=== PATIENT | female | born 1965 | race Caucasian/White ===

== ENCOUNTER 2019-05-11 10:55 | Inpatient (IN) | payer OTHER ==
[~2019-05-11] VITALS: Ht 157.5 cm; Wt 59.0 kg
[2019-05-11] MEDS ORDERED: IV NORMAL SALINE 1000ML BAG 1,000 ML IV SCH (11:13)
[2019-05-11] MEDS ORDERED: fentaNYL PF VIAL 100 MCG/2 ML VIAL IV ONE ×2 (11:15→13:15)
[2019-05-11] MEDS ORDERED: ONDANSETRON PF 4 MG/2 ML VIAL. IV ONE (11:15)
--- NOTE | 2019-05-11 11:18 | PHYS DOC ---
Adult General Chief Complaint Chief Complaint: ABDOMINAL PAIN HPI HPI Patient is a 53 year old female who presents with the evening began having a constant throbbing pain at her umbilicus and by yesterday it has now moved to her right lower quadrant. Patient states she's had some nausea and vomiting. Patient rates her pain a 7 out of 10. Review of Systems Review of Systems Constitutional: Denies fever or chills [] Eyes: Denies change in visual acuity, redness, or eye pain [] HENT: Denies nasal congestion or sore throat [] Respiratory: Denies cough or shortness of breath [] Cardiovascular: No additional information not addressed in HPI [] GI: RLQ abdominal pain, nausea, vomiting, denies bloody stools or diarrhea [] : Denies dysuria or hematuria [] Musculoskeletal: Denies back pain or joint pain [] Integument: Denies rash or skin lesions [] Neurologic: Denies headache, focal weakness or sensory changes [] Endocrine: Denies polyuria or polydipsia [] All other systems were reviewed and found to be within normal limits, except as documented in this note. Current Medications Current Medications Current Medications Medications (Trade) Dose Ordered Sig/Charli Start Time Stop Time Status Last Admin Dose Admin Cefepime HCl (Maxipime) 1 gm 1X ONCE 05/11/19 12:45 05/11/19 12:48 DC 05/11/19 13:14 1 GM Fentanyl Citrate (Fentanyl 2ml Vial) 50 mcg 1X ONCE 05/11/19 13:15 05/11/19 13:16 05/11/19 13:14 50 MCG Info (CONTRAST GIVEN -- Rx MONITORING) 1 each PRN DAILY PRN 05/11/19 12:00 05/13/19 11:59 Iohexol (Omnipaque 300 Mg/ml) 60 ml 1X ONCE 05/11/19 12:00 05/11/19 12:01 DC 05/11/19 12:09 60 ML Ondansetron HCl (Zofran) 4 mg 1X ONCE 05/11/19 11:15 05/11/19 11:32 DC 05/11/19 11:52 4 MG Piperacillin Sod/ Tazobactam Sod 3.375 gm/Sodium Chloride 50 ml @ 100 mls/hr 1X ONCE 05/11/19 12:45 05/11/19 13:14 UNV Sodium Chloride 1,000 ml @ 1,000 mls/hr Q1H 05/11/19 11:13 05/11/19 12:12 DC 05/11/19 11:53 1,000 MLS/HR Allergies Allergies Allergies Coded Allergies Type Severity Reaction Last Updated Verified Penicillins Allergy Intermediate RASH 05/11/19 Yes Physical Exam Physical Exam Constitutional: Well developed, well nourished, no acute distress, non-toxic appearance. [] HENT: Normocephalic, atraumatic, bilateral external ears normal, oropharynx moist, no oral exudates, nose normal. [] Eyes: PERRLA, EOMI, conjunctiva normal, no discharge. [] Neck: Normal range of motion, no tenderness, supple, no stridor. [] Cardiovascular:Heart rate regular rhythm, no murmur [] Lungs & Thorax: Bilateral breath sounds clear to auscultation [] Abdomen: Bowel sounds normal, soft, RLQ tenderness, no masses, no pulsatile masses. [] Skin: Warm, dry, no erythema, no rash. [] Back: No tenderness, no CVA tenderness. [] Extremities: No tenderness, no cyanosis, no clubbing, ROM intact, no edema. [] Neurologic: Alert and oriented X 3, normal motor function, normal sensory function, no focal deficits noted. [] Psychologic: Affect normal, judgement normal, mood normal. [] Current Patient Data Vital Signs Vital Signs Date Time Temp Pulse Resp B/P (MAP) Pulse Ox O2 Delivery O2 Flow Rate FiO2 05/11/19 11:52 18 100 Room Air 05/11/19 11:29 98.2 90 148/84 (105) 98.2 Lab Values Laboratory Tests Test 05/11/19 11:12 05/11/19 11:27 Urine Collection Type Unknown Urine Color Yellow Urine Clarity Clear Urine pH 7.0 Urine Specific [place] 1.015 Urine Protein Negative mg/dL (NEG-TRACE) Urine Glucose (UA) Negative mg/dL (NEG) Urine Ketones (Stick) Negative mg/dL (NEG) Urine Blood Trace (NEG) Urine Nitrite Negative (NEG) Urine Bilirubin Negative (NEG) Urine Urobilinogen Dipstick 0.2 mg/dL (0.2 mg/dL) Urine Leukocyte Esterase Trace (NEG) Urine RBC 3-5 /HPF (0-2) Urine WBC 5-10 /HPF (0-4) Urine Squamous Epithelial Cells Mod /LPF Urine Bacteria Few /HPF (0-FEW) White Blood Count 13.4 x10^3/uL (4.0-11.0) H Red Blood Count 4.19 x10^6/uL (3.50-5.40) Hemoglobin 13.0 g/dL (12.0-15.5) Hematocrit 38.4 % (36.0-47.0) Mean Corpuscular Volume 92 fL (79-100) Mean Corpuscular Hemoglobin 31 pg (25-35) Mean Corpuscular Hemoglobin Concent 34 g/dL (31-37) Red Cell Distribution Width 13.1 % (11.5-14.5) Platelet Count 193 x10^3/uL (140-400) Neutrophils (%) (Auto) 89 % (31-73) H Lymphocytes (%) (Auto) 7 % (24-48) L Monocytes (%) (Auto) 4 % (0-9) Eosinophils (%) (Auto) 0 % (0-3) Basophils (%) (Auto) 1 % (0-3) Neutrophils # (Auto) 11.8 x10^3uL (1.8-7.7) H Lymphocytes # (Auto) 0.9 x10^3/uL (1.0-4.8) L Monocytes # (Auto) 0.6 x10^3/uL (0.0-1.1) Eosinophils # (Auto) 0.0 x10^3/uL (0.0-0.7) Basophils # (Auto) 0.1 x10^3/uL (0.0-0.2) Platelet Estimate Pending Sodium Level 132 mmol/L (136-145) L Potassium Level 3.6 mmol/L (3.5-5.1) Chloride Level 97 mmol/L (98-107) L Carbon Dioxide Level 28 mmol/L (21-32) Anion Gap 7 (6-14) Blood Urea Nitrogen 13 mg/dL (7-20) Creatinine 1.1 mg/dL (0.6-1.0) H Estimated GFR (Cockcroft-Gault) 52.2 BUN/Creatinine Ratio 12 (6-20) Glucose Level 127 mg/dL (70-99) H Calcium Level 9.8 mg/dL (8.5-10.1) Total Bilirubin 1.3 mg/dL (0.2-1.0) H Aspartate Amino Transferase (AST) 19 U/L (15-37) Alanine Aminotransferase (ALT) 22 U/L (14-59) Alkaline Phosphatase 57 U/L (46-116) Total Protein 8.5 g/dL (6.4-8.2) H Albumin 4.0 g/dL (3.4-5.0) Albumin/Globulin Ratio 0.9 (1.0-1.7) L Lipase 356 U/L (73-393) Laboratory Tests 05/11/19 11:27 Laboratory Tests 05/11/19 11:27 EKG EKG [] Radiology/Procedures Radiology/Procedures [] Impressions: [facility] [address] [place] [address] IMAGING REPORT Signed PATIENT: WILLIS BOWLING ACCOUNT: [id number] : 1965 LOCATION: ER AGE: 53 SEX: F EXAM STATUS: REG ER ORD. PHYSICIAN: ZARIA GALEANO APRN REASON: RLQ pain PROCEDURE: CT ABD PELV W/ IV CONTRST ONLY Exam performed: CT abdomen and pelvis with contrast HISTORY: Right lower quadrant abdominal pain. DATE OF SERVICE: 05/11/2019. COMPARISON: None available TECHNIQUE: Contiguous helical acquisitions are obtained from the abdomen and pelvis during intravenous administration of 60 cc of Omnipaque 300. Sagittal and coronal reformatted images are obtained and reviewed. FINDINGS: The appendix is enlarged containing multiple appendicoliths. Diffuse adjacent inflammatory changes are seen. Findings consistent with acute appendicitis. There is a heterogeneously enhancing partially necrotic mass measuring 6.9 cm x 7.78 x 10.79 cm in maximum AP, transverse and craniocaudal dimension occupying the mid to inferior pole of the right kidney extending to the pelvis however not obstructing it. No enlarged lymph nodes are seen in the right renal hilum or in the periaortic/pericaval region. Lung bases are clear. Visualized heart is normal. Liver, spleen, pancreas and gallbladder are normal. Both adrenal glands and the left kidney is normal. Is normal in caliber. Small and large bowel loops are nondilated and unremarkable. Urinary bladder is partially decompressed. Uterus is anteverted. No adnexal masses or pelvic free fluid is seen. IMPRESSION: 1. Enlarged appendix containing appendicolith with adjacent inflammatory changes. Findings consistent with acute appendicitis. 2. Large heterogeneously enhancing mass is seen arising from the mid to inferior pole of the right kidney. Unless proven otherwise, renal cell carcinoma is the primary suspected. MRI abdomen with renal protocol may be obtained to further evaluate. Results were given to Zaria, the nurse practitioner in the ER soon after completion of the study at 12:30 PM at the time of dictation PQRS Compliance Statement: One or more of the following individualized dose reduction techniques were utilized for this examination: 1. Automated exposure control 2. Adjustment of the mA and/or kV according to patient size 3. Use of iterative reconstruction technique Electronically signed by: Griselda Ng MD (05/11/2019 12:32 PM) [facility] [place] DICTATED and SIGNED BY: GRISELDA NG MD DATE: 05/11/19 1232 Course & Med Decision Making Course & Med Decision Making Patient is a 53 year old female who presents with the evening began having a constant throbbing pain at her umbilicus and by yesterday it has now moved to her right lower quadrant. Patient states she's had some nausea and vomiting. Patient rates her pain a 7 out of 10. Patient states it's worse with sitting and nothing makes it better. Patient has not taken any pain medication. Vital signs within normal limits. Afebrile. Skin pink warm and dry. Mucous membranes are moist. Abdomen is soft and tender with palpation to right lower quadrant. There is no rebound tenderness. Steady gait. No extremity swelling. Vital signs are within normal limits. Lungs are clear to auscultation all lobes. Heart rate regular without murmur. Patient denies diarrhea, blood in her vomit or stool, shortness of air, chest pain. WBC elevated. CT ABD Pelv shows 1. Enlarged appendix containing appendicolith with adjacent inflammatory changes. Findings consistent with acute appendicitis. 2. Large heterogeneously enhancing mass is seen arising from the mid to inferior pole of the right kidney. Unless proven otherwise, renal cell carcinoma is the primary suspected. MRI abdomen with renal protocol may be obtained to further evaluate. I have spoken to Dr Hanson about this patient for admission. I have started Cefepime. Patient allergic to PCN. 1315: I have spoken to Surgeon Dr Hu and informed him of CT findings. He accepts the patient. Dragon Disclaimer Dragon Disclaimer This electronic medical record was generated, in whole or in part, using a voice recognition dictation system. Departure Departure Impression: Primary Impression: Appendicitis Additional Impression: Kidney mass Disposition: 09 ADMITTED INPATIENT Admitting Physician: ROSA Condition: STABLE Problem Qualifiers Primary Impression: Appendicitis Appendicitis type: acute appendicitis Acute appendicitis type: unspecified acute appendicitis type Qualified Codes: K35.80 - Unspecified acute appendicitis ZARIA GALEANO [employer] May 11, 2019 11:18
[2019-05-11 11:37] LABS: BASO # 0.1 x10^3/uL (0.0-0.2); BASO % 1 % (0-3); EOS % 0 % (0-3); HEMATOCRIT 38.4 % (36.0-47.0); LYMPH # 0.9 x10^3/uL (1.0-4.8); LYMPH % 7 % (24-48); MEAN CORPUSCULAR HEMOGLOBIN 31 pg (25-35); MEAN CORPUSCULAR HGB CONC 34 g/dL (31-37); MEAN CORPUSCULAR VOLUME 92 fL (79-100); MONO # 0.6 x10^3/uL (0.0-1.1); MONO % 4 % (0-9); NEUT # 11.8 x10^3uL (1.8-7.7); NEUT % 89 % (31-73); PLATELET COUNT 193 x10^3/uL (140-400); RED BLOOD COUNT 4.19 x10^6/uL (3.50-5.40); RED CELL DISTRIBUTION WIDTH 13.1 % (11.5-14.5); WHITE BLOOD COUNT 13.4 x10^3/uL (4.0-11.0)
[2019-05-11 11:37] LABS: BILIRUBIN,URINE NEGATIVE (NEG); CLARITY,URINE CLEAR; COLOR,URINE YELLOW; NITRITE,URINE NEGATIVE (NEG); PROTEIN,URINE NEGATIVE (NEG-TRACE); UROBILINOGEN,URINE 0.2 mg/dL (0.2 mg/dL)
[2019-05-11 11:45] LABS: SQUAMOUS EPITHELIAL CELL,UR MOD /LPF
[2019-05-11 11:45] LABS: CALCIUM 9.8 mg/dL (8.5-10.1); CREATININE 1.1 mg/dL (0.6-1.0); GFR 52.2; POTASSIUM 3.6 mmol/L (3.5-5.1)
[2019-05-11 11:46] LABS: BACTERIA,URINE FEW /HPF (0-FEW)
[2019-05-11 11:51] LABS: ALBUMIN/GLOBULIN RATIO 0.9 (1.0-1.7); TOTAL BILIRUBIN 1.3 mg/dL (0.2-1.0); TOTAL PROTEIN 8.5 g/dL (6.4-8.2)
[2019-05-11] MEDS ORDERED: CONTRAST GIVEN. MC PRN (12:00)
[2019-05-11] MEDS ORDERED: IOHEXOL 300 MG/ML 100ML VIAL. IV ONE (12:00)
--- NOTE | 2019-05-11 12:35 | RAD ---
Exam performed: CT abdomen and pelvis with contrast HISTORY: Right lower quadrant abdominal pain. DATE OF SERVICE: 05/11/2019. COMPARISON: None available TECHNIQUE: Contiguous helical acquisitions are obtained from the abdomen and pelvis during intravenous administration of 60 cc of Omnipaque 300. Sagittal and coronal reformatted images are obtained and reviewed. FINDINGS: The appendix is enlarged containing multiple appendicoliths. Diffuse adjacent inflammatory changes are seen. Findings consistent with acute appendicitis. There is a heterogeneously enhancing partially necrotic mass measuring 6.9 cm x 7.78 x 10.79 cm in maximum AP, transverse and craniocaudal dimension occupying the mid to inferior pole of the right kidney extending to the pelvis however not obstructing it. No enlarged lymph nodes are seen in the right renal hilum or in the periaortic/pericaval region. Lung bases are clear. Visualized heart is normal. Liver, spleen, pancreas and gallbladder are normal. Both adrenal glands and the left kidney is normal. Is normal in caliber. Small and large bowel loops are nondilated and unremarkable. Urinary bladder is partially decompressed. Uterus is anteverted. No adnexal masses or pelvic free fluid is seen. IMPRESSION: 1. Enlarged appendix containing appendicolith with adjacent inflammatory changes. Findings consistent with acute appendicitis. 2. Large heterogeneously enhancing mass is seen arising from the mid to inferior pole of the right kidney. Unless proven otherwise, renal cell carcinoma is the primary suspected. MRI abdomen with renal protocol may be obtained to further evaluate. Results were given to Zaria, the nurse practitioner in the ER soon after completion of the study at 12:30 PM at the time of dictation PQRS Compliance Statement: One or more of the following individualized dose reduction techniques were utilized for this examination: 1. Automated exposure control 2. Adjustment of the mA and/or kV according to patient size 3. Use of iterative reconstruction technique Electronically signed by: Griselda Ng MD (05/11/2019 12:32 PM) [facility]
[2019-05-11] MEDS ORDERED: BUPIVAC MPF-EPI 0.5%-1:200000 30 ML VIAL. ONE (12:42)
[2019-05-11] MEDS ORDERED: PIPERACILLIN/TAZOBACTAM 3.375 GM in IV NORMAL SALINE 50ML 50 ML IV ONE (12:45)
[2019-05-11] MEDS ORDERED: CEFEPIME HCL IV Push 1 GM VIAL. IVP ONE (12:45)
[2019-05-11] MEDS ORDERED: fentaNYL PF VIAL 100 MCG/2 ML VIAL IV PRN ×4 (13:15→13:30)
[2019-05-11] MEDS ORDERED: ONDANSETRON PF 4 MG/2 ML VIAL. IV PRN ×4 (13:15→15:15)
[2019-05-11] MEDS: IV NORMAL SALINE 1000ML BAG 1,000 ML IV SCH ×5 (13:15→23:17)
[2019-05-11] MEDS ORDERED: ACETAMINOPHEN 500 MG TABLET PO PRN (13:15)
[2019-05-11] MEDS ORDERED: ACETAMINOPHEN/CODEINE 300/30MG TABLET. PO PRN (13:15)
[2019-05-11] MEDS ORDERED: IV RINGERS,LACTATED 1000ML 1,000 ML IV SCH (13:17)
--- NOTE | 2019-05-11 13:26 | PDOC1 ---
History and Physical Date of Admission Date of Admission DATE: 05/11/19 TIME: 13:22 Identification/Chief Complaint Chief Complaint Right lower quadrant pain Source Source: Caregiver, Chart review, Patient History of Present Illness History of Present Illness 53-year-old white female, only past medical is hypertension on meds, acute onset right lower quadrant pain 2 days ago, some nausea, maybe emesis, no fever, no diarrhea. On imaging, acute appendicitis with appendicolith. But also incidental finding of a right necrotic renal mass could be RCC or at least needs to rule that out. Measuring 10 cm greatest diameter. No gross hematuria, no family history of RCC. NEws to her, Nonsmoker, nondrinker, clean living No known allergies. at bedside. Agreeable to be worked up with MRI renal protocol once appendicitis has been taken care of. Past Medical History Cardiovascular: HTN Past Surgical History Past Surgical History: Other (ALISA brooks) Family History Family History: No Significant Social History Smoke: No ALCOHOL: none Drugs: None Current Problem List Problem List Problems Medical Problems: (1) Appendicitis Status: Acute (2) Kidney mass Status: Acute Current Medications Current Medications Current Medications Sodium Chloride 1,000 ml @ 1,000 mls/hr Q1H IV Last administered on 05/11/19at 11:53; Start 05/11/19 at 11:13; Stop 05/11/19 at 12:12; Status DC Fentanyl Citrate (Fentanyl 2ml Vial) 50 mcg 1X ONCE IV Last administered on 05/11/19at 11:52; Start 05/11/19 at 11:15; Stop 05/11/19 at 11:32; Status DC Ondansetron HCl (Zofran) 4 mg 1X ONCE IV Last administered on 05/11/19at 11:52; Start 05/11/19 at 11:15; Stop 05/11/19 at 11:32; Status DC Iohexol (Omnipaque 300 Mg/ml) 60 ml 1X ONCE IV Last administered on 05/11/19at 12:09; Start 05/11/19 at 12:00; Stop 05/11/19 at 12:01; Status DC Info (CONTRAST GIVEN -- Rx MONITORING) 1 each PRN DAILY PRN MC SEE COMMENTS; Start 05/11/19 at 12:00; Stop 05/13/19 at 11:59 Piperacillin Sod/ Tazobactam Sod 3.375 gm/Sodium Chloride 50 ml @ 100 mls/hr 1X ONCE IV ; Start 05/11/19 at 12:45; Stop 05/11/19 at 13:14; Status UNV Cefepime HCl (Maxipime) 1 gm 1X ONCE IVP Last administered on 05/11/19at 13:14; Start 05/11/19 at 12:45; Stop 05/11/19 at 12:48; Status DC Fentanyl Citrate (Fentanyl 2ml Vial) 50 mcg 1X ONCE IV Last administered on 05/11/19at 13:14; Start 05/11/19 at 13:15; Stop 05/11/19 at 13:16; Status DC Sodium Chloride 1,000 ml @ 100 mls/hr Q10H IV ; Start 05/11/19 at 13:15 Fentanyl Citrate (Fentanyl 2ml Vial) 50 mcg PRN Q2HR PRN IV SEVERE PAIN; Start 05/11/19 at 13:15 Ondansetron HCl (Zofran) 4 mg PRN Q6HRS PRN IV NAUSEA/VOMITING; Start 05/11/19 at 13:15 Acetaminophen (Tylenol) 500 mg PRN Q6HRS PRN PO MILD PAIN / TEMP; Start 05/11/19 at 13:15 Acetaminophen/ Codeine Phosphate (Tylenol #3) 1 tab PRN Q6HRS PRN PO MODERATE PAIN; Start 05/11/19 at 13:15 Allergies Allergies: Coded Allergies: Penicillins (Verified Allergy, Intermediate, RASH, 05/11/19) ROS Review of System As per history of present illness, the rest of ROS 14 point negative Physical Exam General: Alert, Oriented X3, Cooperative, No acute distress HEENT: Atraumatic, PERRLA, EOMI Lungs: Clear to auscultation, Normal air movement Heart: S1S2, RRR, no thrills, no rubs, no gallops, no murmurs Cardiovascular: S1, S2 Breasts: Normal, Rt breast nml w/o mass, Lt breast nml w/o mass, Nipples normal Abdomen: Soft, Other (tenderness right lower quadrant area, positive psoas, positive obturator sign, guarding in that right lower quadrant area) Male Genitals Exam: normal genitalia, normal prostate Rectal Exam: not examined PELVIC: Nml ext genitalia Extremities: No clubbing, No cyanosis, No edema, Normal pulses, No tenderness/swelling Skin: No rashes, No breakdown, No significant lesion Neuro: Normal gait, Normal speech, Strength at 5/5 X4 ext, Normal tone, Sensation intact, Cranial nerves 3-12 NL, Reflexes 2+ Psych/Mental Status: Mental status NL, Mood NL Vitals Vitals Vital Signs Date Time Temp Pulse Resp B/P (MAP) Pulse Ox O2 Delivery O2 Flow Rate FiO2 05/11/19 11:52 18 100 Room Air 05/11/19 11:29 98.2 90 148/84 (105) 98.2 Labs Labs Laboratory Tests Test 05/11/19 11:12 05/11/19 11:27 Urine Collection Type Unknown Urine Color Yellow Urine Clarity Clear Urine pH 7.0 Urine Specific [place] 1.015 Urine Protein Negative mg/dL (NEG-TRACE) Urine Glucose (UA) Negative mg/dL (NEG) Urine Ketones (Stick) Negative mg/dL (NEG) Urine Blood Trace (NEG) Urine Nitrite Negative (NEG) Urine Bilirubin Negative (NEG) Urine Urobilinogen Dipstick 0.2 mg/dL (0.2 mg/dL) Urine Leukocyte Esterase Trace (NEG) Urine RBC 3-5 /HPF (0-2) Urine WBC 5-10 /HPF (0-4) Urine Squamous Epithelial Cells Mod /LPF Urine Bacteria Few /HPF (0-FEW) White Blood Count 13.4 x10^3/uL (4.0-11.0) Red Blood Count 4.19 x10^6/uL (3.50-5.40) Hemoglobin 13.0 g/dL (12.0-15.5) Hematocrit 38.4 % (36.0-47.0) Mean Corpuscular Volume 92 fL (79-100) Mean Corpuscular Hemoglobin 31 pg (25-35) Mean Corpuscular Hemoglobin Concent 34 g/dL (31-37) Red Cell Distribution Width 13.1 % (11.5-14.5) Platelet Count 193 x10^3/uL (140-400) Neutrophils (%) (Auto) 89 % (31-73) Lymphocytes (%) (Auto) 7 % (24-48) Monocytes (%) (Auto) 4 % (0-9) Eosinophils (%) (Auto) 0 % (0-3) Basophils (%) (Auto) 1 % (0-3) Neutrophils # (Auto) 11.8 x10^3uL (1.8-7.7) Lymphocytes # (Auto) 0.9 x10^3/uL (1.0-4.8) Monocytes # (Auto) 0.6 x10^3/uL (0.0-1.1) Eosinophils # (Auto) 0.0 x10^3/uL (0.0-0.7) Basophils # (Auto) 0.1 x10^3/uL (0.0-0.2) Sodium Level 132 mmol/L (136-145) Potassium Level 3.6 mmol/L (3.5-5.1) Chloride Level 97 mmol/L (98-107) Carbon Dioxide Level 28 mmol/L (21-32) Anion Gap 7 (6-14) Blood Urea Nitrogen 13 mg/dL (7-20) Creatinine 1.1 mg/dL (0.6-1.0) Estimated GFR (Cockcroft-Gault) 52.2 BUN/Creatinine Ratio 12 (6-20) Glucose Level 127 mg/dL (70-99) Calcium Level 9.8 mg/dL (8.5-10.1) Total Bilirubin 1.3 mg/dL (0.2-1.0) Aspartate Amino Transf (AST/SGOT) 19 U/L (15-37) Alanine Aminotransferase (ALT/SGPT) 22 U/L (14-59) Alkaline Phosphatase 57 U/L (46-116) Total Protein 8.5 g/dL (6.4-8.2) Albumin 4.0 g/dL (3.4-5.0) Albumin/Globulin Ratio 0.9 (1.0-1.7) Lipase 356 U/L (73-393) Laboratory Tests Test 05/11/19 11:12 05/11/19 11:27 Urine Collection Type Unknown Urine Color Yellow Urine Clarity Clear Urine pH 7.0 Urine Specific [place] 1.015 Urine Protein Negative mg/dL (NEG-TRACE) Urine Glucose (UA) Negative mg/dL (NEG) Urine Ketones (Stick) Negative mg/dL (NEG) Urine Blood Trace (NEG) Urine Nitrite Negative (NEG) Urine Bilirubin Negative (NEG) Urine Urobilinogen Dipstick 0.2 mg/dL (0.2 mg/dL) Urine Leukocyte Esterase Trace (NEG) Urine RBC 3-5 /HPF (0-2) Urine WBC 5-10 /HPF (0-4) Urine Squamous Epithelial Cells Mod /LPF Urine Bacteria Few /HPF (0-FEW) White Blood Count 13.4 x10^3/uL (4.0-11.0) Red Blood Count 4.19 x10^6/uL (3.50-5.40) Hemoglobin 13.0 g/dL (12.0-15.5) Hematocrit 38.4 % (36.0-47.0) Mean Corpuscular Volume 92 fL (79-100) Mean Corpuscular Hemoglobin 31 pg (25-35) Mean Corpuscular Hemoglobin Concent 34 g/dL (31-37) Red Cell Distribution Width 13.1 % (11.5-14.5) Platelet Count 193 x10^3/uL (140-400) Neutrophils (%) (Auto) 89 % (31-73) Lymphocytes (%) (Auto) 7 % (24-48) Monocytes (%) (Auto) 4 % (0-9) Eosinophils (%) (Auto) 0 % (0-3) Basophils (%) (Auto) 1 % (0-3) Neutrophils # (Auto) 11.8 x10^3uL (1.8-7.7) Lymphocytes # (Auto) 0.9 x10^3/uL (1.0-4.8) Monocytes # (Auto) 0.6 x10^3/uL (0.0-1.1) Eosinophils # (Auto) 0.0 x10^3/uL (0.0-0.7) Basophils # (Auto) 0.1 x10^3/uL (0.0-0.2) Sodium Level 132 mmol/L (136-145) Potassium Level 3.6 mmol/L (3.5-5.1) Chloride Level 97 mmol/L (98-107) Carbon Dioxide Level 28 mmol/L (21-32) Anion Gap 7 (6-14) Blood Urea Nitrogen 13 mg/dL (7-20) Creatinine 1.1 mg/dL (0.6-1.0) Estimated GFR (Cockcroft-Gault) 52.2 BUN/Creatinine Ratio 12 (6-20) Glucose Level 127 mg/dL (70-99) Calcium Level 9.8 mg/dL (8.5-10.1) Total Bilirubin 1.3 mg/dL (0.2-1.0) Aspartate Amino Transf (AST/SGOT) 19 U/L (15-37) Alanine Aminotransferase (ALT/SGPT) 22 U/L (14-59) Alkaline Phosphatase 57 U/L (46-116) Total Protein 8.5 g/dL (6.4-8.2) Albumin 4.0 g/dL (3.4-5.0) Albumin/Globulin Ratio 0.9 (1.0-1.7) Lipase 356 U/L (73-393) VTE Prophylaxis Ordered VTE Prophylaxis Devices: Yes VTE Pharmacological Prophylaxi: Yes Assessment/Plan Assessment/Plan Acute appendicitis with appendicolith Incidental right renal necrotic mass need to rule out RCC, measuring 10 cm greatest diameter Mild hyponatremia 132 AK I VMN - creatinine 1.1 Plan: nothing by mouth, OR today, IVF NS Consult urology tomorrow regarding this incidental right renal mass MRI renal protocol tomorrow once status post open appy Okay to resume BP meds once postop Discussed with at bedside, full code Seen at KRISTA ENRIQUEZ MD May 11, 2019 13:26
[2019-05-11] MEDS ORDERED: MORPHINE SULFATE 2 MG/ML VIAL. IV PRN ×2 (13:30→15:15)
[2019-05-11] MEDS ORDERED: LIDOCAINE 1% PF 2 ML VIAL. ID PRN (13:30)
[2019-05-11] MEDS ORDERED: PROCHLORPERAZINE 10 MG/2 ML VIAL. IV PRN (13:30)
[2019-05-11] MEDS ORDERED: HYDROmorphone 2 MG/ML VIAL IV PRN (13:30)
--- NOTE | 2019-05-11 13:50 | PDOC2 ---
CONSULT Date of Consult Date of Consult DATE: 05/11/19 TIME: 13:46 Reason for Consult Reason for Consult: Appendicitis Referring Physician Referring Physician: Valentin Identification/Chief Complaint Chief Complaint RLQ abd pain Source Source: Chart review, Patient History of Present Illness Reason for Visit: 53 yo F with c/o RLQ and anorexia for a few days. Pain localized to RLQ and worsened, prompting urgent care visit and ER visit. She is accompanied by supportive family. Past Medical History Cardiovascular: HTN Past Surgical History Past Surgical History: Other (LASIK sx) Family History Family History: No Significant Social History No ALCOHOL: none Drugs: None Current Problem List Problem List Problems Medical Problems: (1) Appendicitis Status: Acute (2) Kidney mass Status: Acute Current Medications Current Medications Current Medications Sodium Chloride 1,000 ml @ 1,000 mls/hr Q1H IV Last administered on 05/11/19at 11:53; Start 05/11/19 at 11:13; Stop 05/11/19 at 12:12; Status DC Fentanyl Citrate (Fentanyl 2ml Vial) 50 mcg 1X ONCE IV Last administered on 05/11/19at 11:52; Start 05/11/19 at 11:15; Stop 05/11/19 at 11:32; Status DC Ondansetron HCl (Zofran) 4 mg 1X ONCE IV Last administered on 05/11/19at 11:52; Start 05/11/19 at 11:15; Stop 05/11/19 at 11:32; Status DC Iohexol (Omnipaque 300 Mg/ml) 60 ml 1X ONCE IV Last administered on 05/11/19at 12:09; Start 05/11/19 at 12:00; Stop 05/11/19 at 12:01; Status DC Info (CONTRAST GIVEN -- Rx MONITORING) 1 each PRN DAILY PRN MC SEE COMMENTS; Start 05/11/19 at 12:00; Stop 05/13/19 at 11:59 Piperacillin Sod/ Tazobactam Sod 3.375 gm/Sodium Chloride 50 ml @ 100 mls/hr 1X ONCE IV ; Start 05/11/19 at 12:45; Stop 05/11/19 at 13:14; Status UNV Cefepime HCl (Maxipime) 1 gm 1X ONCE IVP Last administered on 05/11/19at 13:14; Start 05/11/19 at 12:45; Stop 05/11/19 at 12:48; Status DC Fentanyl Citrate (Fentanyl 2ml Vial) 50 mcg 1X ONCE IV Last administered on 05/11/19at 13:14; Start 05/11/19 at 13:15; Stop 05/11/19 at 13:16; Status DC Sodium Chloride 1,000 ml @ 100 mls/hr Q10H IV ; Start 05/11/19 at 13:15 Fentanyl Citrate (Fentanyl 2ml Vial) 50 mcg PRN Q2HR PRN IV SEVERE PAIN; Start 05/11/19 at 13:15 Ondansetron HCl (Zofran) 4 mg PRN Q6HRS PRN IV NAUSEA/VOMITING; Start 05/11/19 at 13:15 Acetaminophen (Tylenol) 500 mg PRN Q6HRS PRN PO MILD PAIN / TEMP; Start 05/11/19 at 13:15 Acetaminophen/ Codeine Phosphate (Tylenol #3) 1 tab PRN Q6HRS PRN PO MODERATE PAIN; Start 05/11/19 at 13:15 Ondansetron HCl (Zofran) 4 mg PRN Q6HRS PRN IV NAUSEA/VOMITING; Start 05/11/19 at 13:30; Stop 05/11/19 at 20:00 Fentanyl Citrate (Fentanyl 2ml Vial) 25 mcg PRN Q5MIN PRN IV MILD PAIN 1-3; Start 05/11/19 at 13:30; Stop 05/11/19 at 20:00 Fentanyl Citrate (Fentanyl 2ml Vial) 50 mcg PRN Q5MIN PRN IV MODERATE TO SEVERE PAIN; Start 05/11/19 at 13:30; Stop 05/11/19 at 20:00 Morphine Sulfate (Morphine Sulfate) 1 mg PRN Q10MIN PRN IV SEVERE PAIN 7-10; Start 05/11/19 at 13:30; Stop 05/11/19 at 20:00 Ringer's Solution 1,000 ml @ 30 mls/hr Q24H IV ; Start 05/11/19 at 13:17; Stop 05/12/19 at 01:16 Lidocaine HCl (Xylocaine-Mpf 1% 2ml Vial) 2 ml PRN 1X PRN ID PRIOR TO IV START; Start 05/11/19 at 13:30; Stop 05/11/19 at 20:00 Hydromorphone HCl (Dilaudid) 0.5 mg PRN Q10MIN PRN IV SEV PAIN, Second choice; Start 05/11/19 at 13:30; Stop 05/11/19 at 20:00 Prochlorperazine Edisylate (Compazine) 5 mg PACU PRN PRN IV NAUSEA, MRX1; Start 05/11/19 at 13:30; Stop 05/11/19 at 20:00 Cefazolin Sodium/ Dextrose 50 ml @ 100 mls/hr 1X PREOP ONCE IV ; Start 05/11/19 at 13:15; Stop 05/11/19 at 13:44; Status DC Metronidazole 100 ml @ 100 mls/hr 1X PREOP IV Last administered on 05/11/19at 13:37; Start 05/11/19 at 13:15 Ondansetron HCl (Zofran) 4 mg PRN Q8HRS PRN IV NAUSEA/VOMITING; Start 05/11/19 at 13:30; Stop 05/12/19 at 13:29 Fentanyl Citrate (Fentanyl 2ml Vial) 50 mcg PRN Q1HR PRN IV SEVERE PAIN; Start 05/11/19 at 13:30; Stop 05/12/19 at 13:29 Sodium Chloride 1,000 ml @ 100 mls/hr Q10H IV ; Start 05/11/19 at 13:17; Stop 05/12/19 at 13:16 Bupivacaine HCl/ Epinephrine Bitart (Sensorcain-Mpf Epi 0.5%-[id number]) 30 ml STK-MED ONCE .ROUTE ; Start 05/11/19 at 12:42; Stop 05/11/19 at 13:42; Status DC Allergies Allergies: Coded Allergies: Penicillins (Verified Allergy, Intermediate, RASH, 05/11/19) ROS Gastrointestinal: Yes Nausea, Yes Abdominal Pain Physical Exam General: Alert, Oriented X3, Cooperative, mild distress HEENT: Atraumatic Lungs: Normal air movement Abdomen: Soft, Other (TTP RLQ) Extremities: No clubbing, No cyanosis Skin: No rashes, No breakdown Neuro: Normal speech, Sensation intact Psych/Mental Status: Mental status NL, Mood NL Vitals VITALS Vital Signs Date Time Temp Pulse Resp B/P (MAP) Pulse Ox O2 Delivery O2 Flow Rate FiO2 05/11/19 11:52 18 100 Room Air 05/11/19 11:29 98.2 90 148/84 (105) 98.2 Labs Labs Laboratory Tests Test 05/11/19 11:12 05/11/19 11:27 Urine Collection Type Unknown Urine Color Yellow Urine Clarity Clear Urine pH 7.0 Urine Specific [place] 1.015 Urine Protein Negative mg/dL (NEG-TRACE) Urine Glucose (UA) Negative mg/dL (NEG) Urine Ketones (Stick) Negative mg/dL (NEG) Urine Blood Trace (NEG) Urine Nitrite Negative (NEG) Urine Bilirubin Negative (NEG) Urine Urobilinogen Dipstick 0.2 mg/dL (0.2 mg/dL) Urine Leukocyte Esterase Trace (NEG) Urine RBC 3-5 /HPF (0-2) Urine WBC 5-10 /HPF (0-4) Urine Squamous Epithelial Cells Mod /LPF Urine Bacteria Few /HPF (0-FEW) White Blood Count 13.4 x10^3/uL (4.0-11.0) Red Blood Count 4.19 x10^6/uL (3.50-5.40) Hemoglobin 13.0 g/dL (12.0-15.5) Hematocrit 38.4 % (36.0-47.0) Mean Corpuscular Volume 92 fL (79-100) Mean Corpuscular Hemoglobin 31 pg (25-35) Mean Corpuscular Hemoglobin Concent 34 g/dL (31-37) Red Cell Distribution Width 13.1 % (11.5-14.5) Platelet Count 193 x10^3/uL (140-400) Neutrophils (%) (Auto) 89 % (31-73) Lymphocytes (%) (Auto) 7 % (24-48) Monocytes (%) (Auto) 4 % (0-9) Eosinophils (%) (Auto) 0 % (0-3) Basophils (%) (Auto) 1 % (0-3) Neutrophils # (Auto) 11.8 x10^3uL (1.8-7.7) Lymphocytes # (Auto) 0.9 x10^3/uL (1.0-4.8) Monocytes # (Auto) 0.6 x10^3/uL (0.0-1.1) Eosinophils # (Auto) 0.0 x10^3/uL (0.0-0.7) Basophils # (Auto) 0.1 x10^3/uL (0.0-0.2) Sodium Level 132 mmol/L (136-145) Potassium Level 3.6 mmol/L (3.5-5.1) Chloride Level 97 mmol/L (98-107) Carbon Dioxide Level 28 mmol/L (21-32) Anion Gap 7 (6-14) Blood Urea Nitrogen 13 mg/dL (7-20) Creatinine 1.1 mg/dL (0.6-1.0) Estimated GFR (Cockcroft-Gault) 52.2 BUN/Creatinine Ratio 12 (6-20) Glucose Level 127 mg/dL (70-99) Calcium Level 9.8 mg/dL (8.5-10.1) Total Bilirubin 1.3 mg/dL (0.2-1.0) Aspartate Amino Transf (AST/SGOT) 19 U/L (15-37) Alanine Aminotransferase (ALT/SGPT) 22 U/L (14-59) Alkaline Phosphatase 57 U/L (46-116) Total Protein 8.5 g/dL (6.4-8.2) Albumin 4.0 g/dL (3.4-5.0) Albumin/Globulin Ratio 0.9 (1.0-1.7) Lipase 356 U/L (73-393) Laboratory Tests Test 05/11/19 11:12 05/11/19 11:27 Urine Collection Type Unknown Urine Color Yellow Urine Clarity Clear Urine pH 7.0 Urine Specific [place] 1.015 Urine Protein Negative mg/dL (NEG-TRACE) Urine Glucose (UA) Negative mg/dL (NEG) Urine Ketones (Stick) Negative mg/dL (NEG) Urine Blood Trace (NEG) Urine Nitrite Negative (NEG) Urine Bilirubin Negative (NEG) Urine Urobilinogen Dipstick 0.2 mg/dL (0.2 mg/dL) Urine Leukocyte Esterase Trace (NEG) Urine RBC 3-5 /HPF (0-2) Urine WBC 5-10 /HPF (0-4) Urine Squamous Epithelial Cells Mod /LPF Urine Bacteria Few /HPF (0-FEW) White Blood Count 13.4 x10^3/uL (4.0-11.0) Red Blood Count 4.19 x10^6/uL (3.50-5.40) Hemoglobin 13.0 g/dL (12.0-15.5) Hematocrit 38.4 % (36.0-47.0) Mean Corpuscular Volume 92 fL (79-100) Mean Corpuscular Hemoglobin 31 pg (25-35) Mean Corpuscular Hemoglobin Concent 34 g/dL (31-37) Red Cell Distribution Width 13.1 % (11.5-14.5) Platelet Count 193 x10^3/uL (140-400) Neutrophils (%) (Auto) 89 % (31-73) Lymphocytes (%) (Auto) 7 % (24-48) Monocytes (%) (Auto) 4 % (0-9) Eosinophils (%) (Auto) 0 % (0-3) Basophils (%) (Auto) 1 % (0-3) Neutrophils # (Auto) 11.8 x10^3uL (1.8-7.7) Lymphocytes # (Auto) 0.9 x10^3/uL (1.0-4.8) Monocytes # (Auto) 0.6 x10^3/uL (0.0-1.1) Eosinophils # (Auto) 0.0 x10^3/uL (0.0-0.7) Basophils # (Auto) 0.1 x10^3/uL (0.0-0.2) Sodium Level 132 mmol/L (136-145) Potassium Level 3.6 mmol/L (3.5-5.1) Chloride Level 97 mmol/L (98-107) Carbon Dioxide Level 28 mmol/L (21-32) Anion Gap 7 (6-14) Blood Urea Nitrogen 13 mg/dL (7-20) Creatinine 1.1 mg/dL (0.6-1.0) Estimated GFR (Cockcroft-Gault) 52.2 BUN/Creatinine Ratio 12 (6-20) Glucose Level 127 mg/dL (70-99) Calcium Level 9.8 mg/dL (8.5-10.1) Total Bilirubin 1.3 mg/dL (0.2-1.0) Aspartate Amino Transf (AST/SGOT) 19 U/L (15-37) Alanine Aminotransferase (ALT/SGPT) 22 U/L (14-59) Alkaline Phosphatase 57 U/L (46-116) Total Protein 8.5 g/dL (6.4-8.2) Albumin 4.0 g/dL (3.4-5.0) Albumin/Globulin Ratio 0.9 (1.0-1.7) Lipase 356 U/L (73-393) Images Images c/w appendicitis and renal mass (urology consulted) Assessment/Plan Assessment/Plan Appendicitis TO OR for laparoscopic versus open appendectomy. R/R/B/A d/w pt and pt's supportive family. Risks, including, but not limited to: bleeding, infection, damage to surrounding structures, risk of anesthesia, risk of open, risk of . They appear to understand, their questions are answered and they elect to proceed. Thanks for consult! DON LUNA MD May 11, 2019 13:50
[2019-05-11] MEDS ORDERED: SURGICEL HEMOSTAT 2X3 EACH. ONE (13:52)
[2019-05-11] MEDS ORDERED: fentaNYL PF VIAL 100 MCG/2 ML VIAL ONE (13:58)
[2019-05-11] MEDS ORDERED: ROCURONIUM 50 MG/5 ML VIAL. ONE (13:58)
[2019-05-11 14:28] LABS: % BANDS 9 % (0-9); % BASOS 1 % (0-3); % LYMPHS 7 % (24-48); % MONOS 4 % (0-10); % SEGS 79 % (35-66)
[2019-05-11 14:29] LABS: PLT ESTIMATE ADEQUATE (ADEQUATE)
[2019-05-11] MEDS ORDERED: NEOSTIGMINE 10 MG/10 ML VIAL. ONE (15:07)
[2019-05-11] MEDS ORDERED: GLYCOPYRROLATE 1 MG/5 ML VIAL. ONE (15:08)
[2019-05-11] MEDS ORDERED: SEVOFLURANE 61 TO 120 MINUTES. IH ONE (15:08)
[2019-05-11] MEDS: IV RINGERS,LACTATED 1000ML 1,000 ML IV SCH (15:09)
[2019-05-11] MEDS ORDERED: ONDANSETRON PF 4 MG/2 ML VIAL. ONE (15:10)
[2019-05-11] MEDS ORDERED: PROPOFOL 20 ML IV ONE (15:10)
[2019-05-11] MEDS ORDERED: LIDOCAINE 2% PF 5 ML VIAL. ONE (15:10)
[2019-05-11] MEDS ORDERED: DEXAMETHASONE SOD PHOS 4 MG/ML VIAL ONE (15:10)
[2019-05-11] MEDS ORDERED: 0.9 % SODIUM CHLORIDE 10 ML DISP.SYRIN. IV PRN (15:15)
[2019-05-11] MEDS ORDERED: HYDROcodone/APAP 5/325MG 1 TAB TABLET PO PRN (15:15)
[2019-05-11] MEDS ORDERED: KETOROLAC 15 MG/ML VIAL. IV PRN (15:15)
[2019-05-11] MEDS ORDERED: NALOXONE 0.4 MG/ML VIAL. IV PRN (15:15)
--- NOTE | 2019-05-11 15:19 | PDOC4 ---
OPERATIVE NOTE Date: Date: May 11, 2019 Pre-Op Diagnosis: Appendicitis Post-Op Diagnosis: perforated appendicitis Procedure Performed: Laparoscopic appendectomy Surgeon: Ranjith Luna Anesthesia Type: GETA plus local Blood Loss: 50 Specimans Obtained: appendix Findings: Localized peritonitis, gangrenous appendix, perforation near tip with some feculent material seen Complications: none Operative Note: After obtaining informed consent, patient was taken to OR, induced under GETA and prepped in the usual fashion. 5 mm port placed LLQ and suprapubic, 12 port placed umbilicus, all under laparoscopic guidance. Abdominal cavity was briefly explored. Not possible to visual kidney mass. Distended right colon. Liver normal in appearance. Cecum adherent to right abdominal wall. Gynecological structures normal. Tissues friable. Appendix bluntly dissected out and noted to have some feculent material in the area. Defect created in mesoappendix. General load SAMMY taken across base of appendix at level of cecum. Mesoappendix was taken with vascular load. Additional clips placed on staple lines for hemostasis. Surgicel placed on staple lines. Appendix placed in bag, delivered and sent to pathology for evaluation. Copious irrigation. No evidence of bleeding or other pathology. Ports removed without bleeding. Fascia repaired with 0 vicryl. Skin repaired with 4 0 monocryl. Dressing placed. Patient tolerated procedure well and sent to PACU in stable condition. All counts correct. Wound class is 4, dirty. DON LUNA MD May 11, 2019 15:19
[2019-05-11] MEDS ORDERED: KETOROLAC 30 MG/ML VIAL. ONE (15:20)
[2019-05-11] MEDS ORDERED: KETOROLAC 30 MG/ML INJ FOR OR. INJ ONE (15:20)
[2019-05-11] MEDS ORDERED: ceFAZolin SODIUM 1 GM in IV DEXTROSE 5% 50 ML IV SCH (15:30)
[2019-05-11] MEDS ORDERED: LISI10TA2 PO (16:29)
[2019-05-11 19:30] VITALS: BP 109/64
[2019-05-11] MEDS: DOCUSATE SODIUM 100 MG CAPSULE. PO SCH (21:00)
[2019-05-11] MEDS: ENOXAPARIN 40 MG/0.4 ML SYRINGE. SQ SCH (21:00)
--- NOTE | 2019-05-11 21:00 | NUR ---
Scheduled Lovenox dose non-administered as pt is less than 10 hours post-op, refer to operative record.
[2019-05-11] MEDS: ceFAZolin SODIUM IV Push 1 GM VIAL. IVP SCH (21:55)
[2019-05-11 23:30] VITALS: BP 107/63
[2019-05-12] MEDS: IV RINGERS,LACTATED 1000ML 1,000 ML IV SCH ×3 (00:35→21:03)
[2019-05-12 03:24] VITALS: BP 110/64
[2019-05-12 03:52] LABS: BASO % 0 % (0-3); EOS % 0 % (0-3); HEMATOCRIT 30.8 % (36.0-47.0); LYMPH # 0.6 x10^3/uL (1.0-4.8); LYMPH % 6 % (24-48); MEAN CORPUSCULAR HEMOGLOBIN 33 pg (25-35); MEAN CORPUSCULAR HGB CONC 36 g/dL (31-37); MEAN CORPUSCULAR VOLUME 92 fL (79-100); MONO # 0.6 x10^3/uL (0.0-1.1); MONO % 6 % (0-9); NEUT # 8.8 x10^3uL (1.8-7.7); NEUT % 89 % (31-73); PLATELET COUNT 154 x10^3/uL (140-400); RED BLOOD COUNT 3.36 x10^6/uL (3.50-5.40); RED CELL DISTRIBUTION WIDTH 13.4 % (11.5-14.5)
[2019-05-12 04:20] LABS: CALCIUM 8.6 mg/dL (8.5-10.1); CREATININE 0.9 mg/dL (0.6-1.0); GFR 65.8; POTASSIUM 3.8 mmol/L (3.5-5.1)
[2019-05-12] MEDS: ceFAZolin SODIUM IV Push 1 GM VIAL. IVP SCH ×3 (05:52→22:45)
[2019-05-12 07:00] VITALS: BP 119/66
--- NOTE | 2019-05-12 08:56 | PDOC2 ---
UROLOGY CONSULT Date of Consult Date of Consult DATE: 05/12/19 TIME: 08:48 Reason for Consult Reason for Consult: Rt renal mass Referring Physician Referring Physician: Valentin Identification/Chief Complaint Chief Complaint Rt renal mass discovered on CT Source Source: Patient History of Present Illness Reason for Visit: pt admitted for appendicitis; CT revealed a large R renal mass suspicious for cancer Past Medical History Cardiovascular: No pertinent hx, HTN Pulmonary: No pertinent hx Renal/: Hematuria Past Surgical History Past Surgical History: Appendectomy, Other (LASIK sx) Family History Family History: No Significant, Other (Renal cancer) Social History No ALCOHOL: none Drugs: None Current Medications Current Medications Current Medications Acetaminophen (Tylenol) 500 mg PRN Q6HRS PRN PO MILD PAIN / TEMP; Start 05/11/19 at 13:15 Acetaminophen/ Codeine Phosphate (Tylenol #3) 1 tab PRN Q6HRS PRN PO MODERATE PAIN; Start 05/11/19 at 13:15 Acetaminophen/ Hydrocodone Bitart (Lortab 5/325) 1 tab PRN Q4HRS PRN PO MILD PAIN 1-3; Start 05/11/19 at 15:15 Bupivacaine HCl/ Epinephrine Bitart (Sensorcain-Mpf Epi 0.5%-1:[id number]) 30 ml STK-MED ONCE .ROUTE Last administered on 05/11/19at 14:30; Start 05/11/19 at 12:42; Stop 05/11/19 at 13:42; Status DC Cefazolin Sodium (Ancef) 1 gm Q8HRS IVP Last administered on 05/12/19at 05:52; Start 05/11/19 at 22:00 Cefazolin Sodium 1 gm/Dextrose 50 ml @ 100 mls/hr Q8H IV ; Start 05/11/19 at 15:30; Stop 05/11/19 at 16:13; Status DC Cefazolin Sodium/ Dextrose 50 ml @ 100 mls/hr 1X PREOP ONCE IV Last administered on 05/11/19at 13:59; Start 05/11/19 at 13:15; Stop 05/11/19 at 13:44; Status DC Cefepime HCl (Maxipime) 1 gm 1X ONCE IVP Last administered on 05/11/19at 13:14; Start 05/11/19 at 12:45; Stop 05/11/19 at 12:48; Status DC Cellulose (Surgicel Hemostat 2x3) 1 each STK-MED ONCE .ROUTE Last administered on 05/11/19at 14:30; Start 05/11/19 at 13:52; Stop 05/11/19 at 14:52; Status DC Dexamethasone Sodium Phosphate (Decadron) 4 mg STK-MED ONCE .ROUTE ; Start 05/11/19 at 15:10; Stop 05/11/19 at 15:11; Status DC Docusate Sodium (Colace) 100 mg BID PO ; Start 05/11/19 at 21:00 Enoxaparin Sodium (Lovenox 40mg Syringe) 40 mg QHS SQ ; Start 05/11/19 at 21:00 Fentanyl Citrate (Fentanyl 2ml Vial) 25 mcg PRN Q5MIN PRN IV MILD PAIN 1-3; Start 05/11/19 at 13:30; Stop 05/11/19 at 20:00; Status DC Fentanyl Citrate (Fentanyl 2ml Vial) 50 mcg 1X ONCE IV Last administered on 05/11/19at 11:52; Start 05/11/19 at 11:15; Stop 05/11/19 at 11:32; Status DC Fentanyl Citrate (Fentanyl 2ml Vial) 50 mcg 1X ONCE IV Last administered on 05/11/19at 13:14; Start 05/11/19 at 13:15; Stop 05/11/19 at 13:16; Status DC Fentanyl Citrate (Fentanyl 2ml Vial) 50 mcg PRN Q1HR PRN IV SEVERE PAIN; Start 05/11/19 at 13:30; Stop 05/12/19 at 13:29 Fentanyl Citrate (Fentanyl 2ml Vial) 50 mcg PRN Q2HR PRN IV SEVERE PAIN; Start 05/11/19 at 13:15 Fentanyl Citrate (Fentanyl 2ml Vial) 50 mcg PRN Q5MIN PRN IV MODERATE TO SEVERE PAIN Last administered on 05/11/19at 15:25; Start 05/11/19 at 13:30; Stop 05/11/19 at 20:00; Status DC Fentanyl Citrate (Fentanyl 2ml Vial) 100 mcg STK-MED ONCE .ROUTE ; Start 05/11/19 at 13:58; Stop 05/11/19 at 13:59; Status DC Glycopyrrolate (Robinul) 1 mg STK-MED ONCE .ROUTE ; Start 05/11/19 at 15:08; Stop 05/11/19 at 15:09; Status DC Hydromorphone HCl (Dilaudid) 0.5 mg PRN Q10MIN PRN IV SEV PAIN, Second choice; Start 05/11/19 at 13:30; Stop 05/11/19 at 20:00; Status DC Info (CONTRAST GIVEN -- Rx MONITORING) 1 each PRN DAILY PRN MC SEE COMMENTS; Start 05/11/19 at 12:00; Stop 05/13/19 at 11:59 Iohexol (Omnipaque 300 Mg/ml) 60 ml 1X ONCE IV Last administered on 05/11/19at 12:09; Start 05/11/19 at 12:00; Stop 05/11/19 at 12:01; Status DC Ketorolac Tromethamine (Toradol 15mg Vial) 15 mg PRN Q6HRS PRN IV PAIN MILD; S tart 05/11/19 at 15:15; Stop 05/16/19 at 15:14 Ketorolac Tromethamine (Toradol 30mg Vial) 30 mg STK-MED ONCE .ROUTE ; Start 05/11/19 at 15:20; Stop 05/11/19 at 15:21; Status DC Ketorolac Tromethamine (Toradol For Or Only) 30 mg STK-MED ONCE INJ ; Start 05/11/19 at 15:20; Stop 05/11/19 at 15:21; Status DC Lidocaine HCl (Lidocaine Pf 2% Vial) 5 ml STK-MED ONCE .ROUTE ; Start 05/11/19 at 15:10; Stop 05/11/19 at 15:11; Status DC Lidocaine HCl (Xylocaine-Mpf 1% 2ml Vial) 2 ml PRN 1X PRN ID PRIOR TO IV START; Start 05/11/19 at 13:30; Stop 05/11/19 at 20:00; Status DC Lisinopril (Prinivil) 10 mg DAILY PO ; Start 05/12/19 at 09:00 Metronidazole 100 ml @ 100 mls/hr 1X PREOP IV Last administered on 05/11/19at 13:37; Start 05/11/19 at 13:15 Metronidazole 100 ml @ 100 mls/hr Q12HR IV Last administered on 05/12/19at 00:37; Start 05/11/19 at 21:00 Morphine Sulfate (Morphine Sulfate) 1 mg PRN Q10MIN PRN IV SEVERE PAIN 7-10; Start 05/11/19 at 13:30; Stop 05/11/19 at 20:00; Status DC Morphine Sulfate (Morphine Sulfate) 1 mg PRN Q1HR PRN IV PAIN; Start 05/11/19 at 15:15 Naloxone HCl (Narcan) 0.4 mg PRN Q2MIN PRN IV SEE INSTRUCTIONS; Start 05/11/19 at 15:15 Neostigmine Methylsulfate (Bloxiverz) 10 mg STK-MED ONCE .ROUTE ; Start 05/11/19 at 15:07; Stop 05/11/19 at 15:08; Status DC Ondansetron HCl (Zofran) 4 mg 1X ONCE IV Last administered on 05/11/19at 11:52; Start 05/11/19 at 11:15; Stop 05/11/19 at 11:32; Status DC Ondansetron HCl (Zofran) 4 mg PRN Q6HRS PRN IV NAUSEA/VOMITING; Start 05/11/19 at 13:15 Ondansetron HCl (Zofran) 4 mg PRN Q6HRS PRN IV NAUSEA/VOMITING; Start 05/11/19 at 13:30; Stop 05/11/19 at 20:00; Status DC Ondansetron HCl (Zofran) 4 mg PRN Q6HRS PRN IV NAUESA, 1ST CHOICE; Start 05/11/19 at 15:15 Ondansetron HCl (Zofran) 4 mg PRN Q8HRS PRN IV NAUSEA/VOMITING; Start 05/11/19 at 13:30; Stop 05/12/19 at 13:29 Ondansetron HCl (Zofran) 4 mg STK-MED ONCE .ROUTE ; Start 05/11/19 at 15:10; Stop 05/11/19 at 15:11; Status DC Piperacillin Sod/ Tazobactam Sod 3.375 gm/Sodium Chloride 50 ml @ 100 mls/hr 1X ONCE IV ; Start 05/11/19 at 12:45; Stop 05/11/19 at 13:14; Status UNV Prochlorperazine Edisylate (Compazine) 5 mg PACU PRN PRN IV NAUSEA, MRX1 Last administered on 05/11/19at 15:24; Start 05/11/19 at 13:30; Stop 05/11/19 at 20:00; Status DC Propofol 20 ml @ As Directed STK-MED ONCE IV ; Start 05/11/19 at 15:10; Stop 05/11/19 at 15:11; Status DC Ringer's Solution 1,000 ml @ 30 mls/hr Q24H IV Last administered on 05/11/19at 15:25; Start 05/11/19 at 13:17; Stop 05/12/19 at 01:16; Status DC Ringer's Solution 1,000 ml @ 100 mls/hr Q10H IV Last administered on 05/12/19at 00:35; Start 05/11/19 at 15:09 Rocuronium [place] (Zemuron) 50 mg STK-MED ONCE .ROUTE ; Start 05/11/19 at 13:58; Stop 05/11/19 at 13:59; Status DC Sevoflurane (Ultane) 60 ml STK-MED ONCE IH ; Start 05/11/19 at 15:08; Stop 05/11/19 at 15:09; Status DC Sodium Chloride 1,000 ml @ 25 mls/hr Q24H IV ; Start 05/11/19 at 15:09 Sodium Chloride 1,000 ml @ 100 mls/hr Q10H IV ; Start 05/11/19 at 13:15 Sodium Chloride 1,000 ml @ 100 mls/hr Q10H IV ; Start 05/11/19 at 13:17; Stop 05/12/19 at 13:16 Sodium Chloride 1,000 ml @ 1,000 mls/hr Q1H IV Last administered on 05/11/19at 11:53; Start 05/11/19 at 11:13; Stop 05/11/19 at 12:12; Status DC Sodium Chloride (Normal Saline Flush) 3 ml QSHIFT PRN IV AFTER MEDS AND BLOOD DRAWS; Start 05/11/19 at 15:15 Allergies Allergies: Coded Allergies: Penicillins (Verified Allergy, Intermediate, RASH, 05/11/19) ROS Review Of Systems: CONSTITUTIONAL: No fever or chills EYES: No recent changes SKIN: No rash or itching CARDIOVASCULAR: No chest pain, syncope, palpitations, or edema RESPIRATORY: No SOB or cough GASTROINTESTINAL: No nausea, vomiting or abdominal pain NEUROLOGICAL: No headaches or weakness ENDOCRINE: No cold or heat intolerance GENITOURINARY: No urgency or frequency of urination MUSCULOSKELETAL: No back pain or joint pain LYMPHATICS: No enlarged lymph nodes PSYCHIATRIC: No anxiety or depression Physical Exam Physical Exam: General: Pleasant, no acute distress, well groomed Eyes: conjunctiva anicteric, eyes full range of motion ENT: moist oral mucosa, normal dentition Neck: Trachea midline, no masses Respiratory: unlabored breathing, not using accessory muscles, no crackles or wheezes Cardiovascular: Regular rate and rhythm, no peripheral edema Abdomen: nontender, nondistended, no hepatosplenomegaly, no masses Skin: no rashes or skin lesions on visualized skin Psych: normal mood, affect. Alert and oriented x 3. Vitals VITALS Vital Signs Date Time Temp Pulse Resp B/P (MAP) Pulse Ox O2 Delivery O2 Flow Rate FiO2 05/12/19 07:00 98.1 90 20 119/66 (83) Room Air 95.0 98.1 05/12/19 03:24 98 Labs Labs Laboratory Tests Test 05/11/19 11:12 05/11/19 11:27 05/12/19 03:35 Urine Collection Type Unknown Urine Color Yellow Urine Clarity Clear Urine pH 7.0 Urine Specific [place] 1.015 Urine Protein Negative mg/dL (NEG-TRACE) Urine Glucose (UA) Negative mg/dL (NEG) Urine Ketones (Stick) Negative mg/dL (NEG) Urine Blood Trace (NEG) Urine Nitrite Negative (NEG) Urine Bilirubin Negative (NEG) Urine Urobilinogen Dipstick 0.2 mg/dL (0.2 mg/dL) Urine Leukocyte Esterase Trace (NEG) Urine RBC 3-5 /HPF (0-2) Urine WBC 5-10 /HPF (0-4) Urine Squamous Epithelial Cells Mod /LPF Urine Bacteria Few /HPF (0-FEW) White Blood Count 13.4 x10^3/uL (4.0-11.0) 10.0 x10^3/uL (4.0-11.0) Red Blood Count 4.19 x10^6/uL (3.50-5.40) 3.36 x10^6/uL (3.50-5.40) Hemoglobin 13.0 g/dL (12.0-15.5) 11.0 g/dL (12.0-15.5) Hematocrit 38.4 % (36.0-47.0) 30.8 % (36.0-47.0) Mean Corpuscular Volume 92 fL (79-100) 92 fL (79-100) Mean Corpuscular Hemoglobin 31 pg (25-35) 33 pg (25-35) Mean Corpuscular Hemoglobin Concent 34 g/dL (31-37) 36 g/dL (31-37) Red Cell Distribution Width 13.1 % (11.5-14.5) 13.4 % (11.5-14.5) Platelet Count 193 x10^3/uL (140-400) 154 x10^3/uL (140-400) Neutrophils (%) (Auto) 89 % (31-73) 89 % (31-73) Lymphocytes (%) (Auto) 7 % (24-48) 6 % (24-48) Monocytes (%) (Auto) 4 % (0-9) 6 % (0-9) Eosinophils (%) (Auto) 0 % (0-3) 0 % (0-3) Basophils (%) (Auto) 1 % (0-3) 0 % (0-3) Neutrophils # (Auto) 11.8 x10^3uL (1.8-7.7) 8.8 x10^3uL (1.8-7.7) Lymphocytes # (Auto) 0.9 x10^3/uL (1.0-4.8) 0.6 x10^3/uL (1.0-4.8) Monocytes # (Auto) 0.6 x10^3/uL (0.0-1.1) 0.6 x10^3/uL (0.0-1.1) Eosinophils # (Auto) 0.0 x10^3/uL (0.0-0.7) 0.0 x10^3/uL (0.0-0.7) Basophils # (Auto) 0.1 x10^3/uL (0.0-0.2) 0.0 x10^3/uL (0.0-0.2) Segmented Neutrophils % 79 % (35-66) Band Neutrophils % 9 % (0-9) Lymphocytes % 7 % (24-48) Monocytes % 4 % (0-10) Basophils % 1 % (0-3) Platelet Estimate Adequate (ADEQUATE) Large Platelets Few Sodium Level 132 mmol/L (136-145) 140 mmol/L (136-145) Potassium Level 3.6 mmol/L (3.5-5.1) 3.8 mmol/L (3.5-5.1) Chloride Level 97 mmol/L (98-107) 106 mmol/L (98-107) Carbon Dioxide Level 28 mmol/L (21-32) 25 mmol/L (21-32) Anion Gap 7 (6-14) 9 (6-14) Blood Urea Nitrogen 13 mg/dL (7-20) 12 mg/dL (7-20) Creatinine 1.1 mg/dL (0.6-1.0) 0.9 mg/dL (0.6-1.0) Estimated GFR (Cockcroft-Gault) 52.2 65.8 BUN/Creatinine Ratio 12 (6-20) Glucose Level 127 mg/dL (70-99) 135 mg/dL (70-99) Calcium Level 9.8 mg/dL (8.5-10.1) 8.6 mg/dL (8.5-10.1) Total Bilirubin 1.3 mg/dL (0.2-1.0) Aspartate Amino Transf (AST/SGOT) 19 U/L (15-37) Alanine Aminotransferase (ALT/SGPT) 22 U/L (14-59) Alkaline Phosphatase 57 U/L (46-116) Total Protein 8.5 g/dL (6.4-8.2) Albumin 4.0 g/dL (3.4-5.0) Albumin/Globulin Ratio 0.9 (1.0-1.7) Lipase 356 U/L (73-393) Laboratory Tests Test 05/11/19 11:12 05/11/19 11:27 05/12/19 03:35 Urine Collection Type Unknown Urine Color Yellow Urine Clarity Clear Urine pH 7.0 Urine Specific [place] 1.015 Urine Protein Negative mg/dL (NEG-TRACE) Urine Glucose (UA) Negative mg/dL (NEG) Urine Ketones (Stick) Negative mg/dL (NEG) Urine Blood Trace (NEG) Urine Nitrite Negative (NEG) Urine Bilirubin Negative (NEG) Urine Urobilinogen Dipstick 0.2 mg/dL (0.2 mg/dL) Urine Leukocyte Esterase Trace (NEG) Urine RBC 3-5 /HPF (0-2) Urine WBC 5-10 /HPF (0-4) Urine Squamous Epithelial Cells Mod /LPF Urine Bacteria Few /HPF (0-FEW) White Blood Count 13.4 x10^3/uL (4.0-11.0) 10.0 x10^3/uL (4.0-11.0) Red Blood Count 4.19 x10^6/uL (3.50-5.40) 3.36 x10^6/uL (3.50-5.40) Hemoglobin 13.0 g/dL (12.0-15.5) 11.0 g/dL (12.0-15.5) Hematocrit 38.4 % (36.0-47.0) 30.8 % (36.0-47.0) Mean Corpuscular Volume 92 fL (79-100) 92 fL (79-100) Mean Corpuscular Hemoglobin 31 pg (25-35) 33 pg (25-35) Mean Corpuscular Hemoglobin Concent 34 g/dL (31-37) 36 g/dL (31-37) Red Cell Distribution Width 13.1 % (11.5-14.5) 13.4 % (11.5-14.5) Platelet Count 193 x10^3/uL (140-400) 154 x10^3/uL (140-400) Neutrophils (%) (Auto) 89 % (31-73) 89 % (31-73) Lymphocytes (%) (Auto) 7 % (24-48) 6 % (24-48) Monocytes (%) (Auto) 4 % (0-9) 6 % (0-9) Eosinophils (%) (Auto) 0 % (0-3) 0 % (0-3) Basophils (%) (Auto) 1 % (0-3) 0 % (0-3) Neutrophils # (Auto) 11.8 x10^3uL (1.8-7.7) 8.8 x10^3uL (1.8-7.7) Lymphocytes # (Auto) 0.9 x10^3/uL (1.0-4.8) 0.6 x10^3/uL (1.0-4.8) Monocytes # (Auto) 0.6 x10^3/uL (0.0-1.1) 0.6 x10^3/uL (0.0-1.1) Eosinophils # (Auto) 0.0 x10^3/uL (0.0-0.7) 0.0 x10^3/uL (0.0-0.7) Basophils # (Auto) 0.1 x10^3/uL (0.0-0.2) 0.0 x10^3/uL (0.0-0.2) Segmented Neutrophils % 79 % (35-66) Band Neutrophils % 9 % (0-9) Lymphocytes % 7 % (24-48) Monocytes % 4 % (0-10) Basophils % 1 % (0-3) Platelet Estimate Adequate (ADEQUATE) Large Platelets Few Sodium Level 132 mmol/L (136-145) 140 mmol/L (136-145) Potassium Level 3.6 mmol/L (3.5-5.1) 3.8 mmol/L (3.5-5.1) Chloride Level 97 mmol/L (98-107) 106 mmol/L (98-107) Carbon Dioxide Level 28 mmol/L (21-32) 25 mmol/L (21-32) Anion Gap 7 (6-14) 9 (6-14) Blood Urea Nitrogen 13 mg/dL (7-20) 12 mg/dL (7-20) Creatinine 1.1 mg/dL (0.6-1.0) 0.9 mg/dL (0.6-1.0) Estimated GFR (Cockcroft-Gault) 52.2 65.8 BUN/Creatinine Ratio 12 (6-20) Glucose Level 127 mg/dL (70-99) 135 mg/dL (70-99) Calcium Level 9.8 mg/dL (8.5-10.1) 8.6 mg/dL (8.5-10.1) Total Bilirubin 1.3 mg/dL (0.2-1.0) Aspartate Amino Transf (AST/SGOT) 19 U/L (15-37) Alanine Aminotransferase (ALT/SGPT) 22 U/L (14-59) Alkaline Phosphatase 57 U/L (46-116) Total Protein 8.5 g/dL (6.4-8.2) Albumin 4.0 g/dL (3.4-5.0) Albumin/Globulin Ratio 0.9 (1.0-1.7) Lipase 356 U/L (73-393) Images Images CT reviewed The lung bases are clear There is a large (7cm) solid mass in Rt kidney ; endophytic; no nodes viz'd; liver looks nl Assessment/Plan Assessment/Plan Will need CXR today; then we will start planning for a Rt nephrectomy. I discussed thoroughly with pt and her and mother. They understand the gravity of the situation. They know that the major risk of this type of surgey is bleeding. They know that this michel require a 4-7 d hospitalization. She has a FHx of renal cancer (father and sibling) and will need genetic consultation after surgery and path complete. CXR this am and then dismiss. We will contact her to schedule surgery. She knows she may want to go to a tertiary center but prefers to stay at [facility] MARI DELEON MD May 12, 2019 08:56
[2019-05-12] MEDS: LISINOPRIL 10 MG TABLET PO SCH (09:00)
--- NOTE | 2019-05-12 09:05 | PDOC ---
SURGICAL PROGRESS NOTE Subjective pain managed no nausea tolerating clears Vital Signs Vital Signs Date Time Temp Pulse Resp B/P (MAP) Pulse Ox O2 Delivery O2 Flow Rate FiO2 05/12/19 07:00 98.1 90 20 119/66 (83) Room Air 95.0 98.1 05/12/19 03:24 98 I&O Intake and Output 05/12/19 06:59 Intake Total 4980 ml Output Total 150 ml Balance 4830 ml Intake Oral 780 ml IV Total 4200 ml Output Urine Total 150 ml # Voids 3 General: Alert, Oriented X3, Cooperative, No acute distress Abdomen: Soft, Other (dressings dry) Labs Laboratory Tests Test 05/11/19 11:12 05/11/19 11:27 05/12/19 03:35 Urine Collection Type Unknown Urine Color Yellow Urine Clarity Clear Urine pH 7.0 Urine Specific [place] 1.015 Urine Protein Negative mg/dL (NEG-TRACE) Urine Glucose (UA) Negative mg/dL (NEG) Urine Ketones (Stick) Negative mg/dL (NEG) Urine Blood Trace (NEG) Urine Nitrite Negative (NEG) Urine Bilirubin Negative (NEG) Urine Urobilinogen Dipstick 0.2 mg/dL (0.2 mg/dL) Urine Leukocyte Esterase Trace (NEG) Urine RBC 3-5 /HPF (0-2) Urine WBC 5-10 /HPF (0-4) Urine Squamous Epithelial Cells Mod /LPF Urine Bacteria Few /HPF (0-FEW) White Blood Count 13.4 x10^3/uL (4.0-11.0) 10.0 x10^3/uL (4.0-11.0) Red Blood Count 4.19 x10^6/uL (3.50-5.40) 3.36 x10^6/uL (3.50-5.40) Hemoglobin 13.0 g/dL (12.0-15.5) 11.0 g/dL (12.0-15.5) Hematocrit 38.4 % (36.0-47.0) 30.8 % (36.0-47.0) Mean Corpuscular Volume 92 fL (79-100) 92 fL (79-100) Mean Corpuscular Hemoglobin 31 pg (25-35) 33 pg (25-35) Mean Corpuscular Hemoglobin Concent 34 g/dL (31-37) 36 g/dL (31-37) Red Cell Distribution Width 13.1 % (11.5-14.5) 13.4 % (11.5-14.5) Platelet Count 193 x10^3/uL (140-400) 154 x10^3/uL (140-400) Neutrophils (%) (Auto) 89 % (31-73) 89 % (31-73) Lymphocytes (%) (Auto) 7 % (24-48) 6 % (24-48) Monocytes (%) (Auto) 4 % (0-9) 6 % (0-9) Eosinophils (%) (Auto) 0 % (0-3) 0 % (0-3) Basophils (%) (Auto) 1 % (0-3) 0 % (0-3) Neutrophils # (Auto) 11.8 x10^3uL (1.8-7.7) 8.8 x10^3uL (1.8-7.7) Lymphocytes # (Auto) 0.9 x10^3/uL (1.0-4.8) 0.6 x10^3/uL (1.0-4.8) Monocytes # (Auto) 0.6 x10^3/uL (0.0-1.1) 0.6 x10^3/uL (0.0-1.1) Eosinophils # (Auto) 0.0 x10^3/uL (0.0-0.7) 0.0 x10^3/uL (0.0-0.7) Basophils # (Auto) 0.1 x10^3/uL (0.0-0.2) 0.0 x10^3/uL (0.0-0.2) Segmented Neutrophils % 79 % (35-66) Band Neutrophils % 9 % (0-9) Lymphocytes % 7 % (24-48) Monocytes % 4 % (0-10) Basophils % 1 % (0-3) Platelet Estimate Adequate (ADEQUATE) Large Platelets Few Sodium Level 132 mmol/L (136-145) 140 mmol/L (136-145) Potassium Level 3.6 mmol/L (3.5-5.1) 3.8 mmol/L (3.5-5.1) Chloride Level 97 mmol/L (98-107) 106 mmol/L (98-107) Carbon Dioxide Level 28 mmol/L (21-32) 25 mmol/L (21-32) Anion Gap 7 (6-14) 9 (6-14) Blood Urea Nitrogen 13 mg/dL (7-20) 12 mg/dL (7-20) Creatinine 1.1 mg/dL (0.6-1.0) 0.9 mg/dL (0.6-1.0) Estimated GFR (Cockcroft-Gault) 52.2 65.8 BUN/Creatinine Ratio 12 (6-20) Glucose Level 127 mg/dL (70-99) 135 mg/dL (70-99) Calcium Level 9.8 mg/dL (8.5-10.1) 8.6 mg/dL (8.5-10.1) Total Bilirubin 1.3 mg/dL (0.2-1.0) Aspartate Amino Transf (AST/SGOT) 19 U/L (15-37) Alanine Aminotransferase (ALT/SGPT) 22 U/L (14-59) Alkaline Phosphatase 57 U/L (46-116) Total Protein 8.5 g/dL (6.4-8.2) Albumin 4.0 g/dL (3.4-5.0) Albumin/Globulin Ratio 0.9 (1.0-1.7) Lipase 356 U/L (73-393) Laboratory Tests Test 05/11/19 11:12 05/11/19 11:27 05/12/19 03:35 Urine Collection Type Unknown Urine Color Yellow Urine Clarity Clear Urine pH 7.0 Urine Specific [place] 1.015 Urine Protein Negative mg/dL (NEG-TRACE) Urine Glucose (UA) Negative mg/dL (NEG) Urine Ketones (Stick) Negative mg/dL (NEG) Urine Blood Trace (NEG) Urine Nitrite Negative (NEG) Urine Bilirubin Negative (NEG) Urine Urobilinogen Dipstick 0.2 mg/dL (0.2 mg/dL) Urine Leukocyte Esterase Trace (NEG) Urine RBC 3-5 /HPF (0-2) Urine WBC 5-10 /HPF (0-4) Urine Squamous Epithelial Cells Mod /LPF Urine Bacteria Few /HPF (0-FEW) White Blood Count 13.4 x10^3/uL (4.0-11.0) 10.0 x10^3/uL (4.0-11.0) Red Blood Count 4.19 x10^6/uL (3.50-5.40) 3.36 x10^6/uL (3.50-5.40) Hemoglobin 13.0 g/dL (12.0-15.5) 11.0 g/dL (12.0-15.5) Hematocrit 38.4 % (36.0-47.0) 30.8 % (36.0-47.0) Mean Corpuscular Volume 92 fL (79-100) 92 fL (79-100) Mean Corpuscular Hemoglobin 31 pg (25-35) 33 pg (25-35) Mean Corpuscular Hemoglobin Concent 34 g/dL (31-37) 36 g/dL (31-37) Red Cell Distribution Width 13.1 % (11.5-14.5) 13.4 % (11.5-14.5) Platelet Count 193 x10^3/uL (140-400) 154 x10^3/uL (140-400) Neutrophils (%) (Auto) 89 % (31-73) 89 % (31-73) Lymphocytes (%) (Auto) 7 % (24-48) 6 % (24-48) Monocytes (%) (Auto) 4 % (0-9) 6 % (0-9) Eosinophils (%) (Auto) 0 % (0-3) 0 % (0-3) Basophils (%) (Auto) 1 % (0-3) 0 % (0-3) Neutrophils # (Auto) 11.8 x10^3uL (1.8-7.7) 8.8 x10^3uL (1.8-7.7) Lymphocytes # (Auto) 0.9 x10^3/uL (1.0-4.8) 0.6 x10^3/uL (1.0-4.8) Monocytes # (Auto) 0.6 x10^3/uL (0.0-1.1) 0.6 x10^3/uL (0.0-1.1) Eosinophils # (Auto) 0.0 x10^3/uL (0.0-0.7) 0.0 x10^3/uL (0.0-0.7) Basophils # (Auto) 0.1 x10^3/uL (0.0-0.2) 0.0 x10^3/uL (0.0-0.2) Segmented Neutrophils % 79 % (35-66) Band Neutrophils % 9 % (0-9) Lymphocytes % 7 % (24-48) Monocytes % 4 % (0-10) Basophils % 1 % (0-3) Platelet Estimate Adequate (ADEQUATE) Large Platelets Few Sodium Level 132 mmol/L (136-145) 140 mmol/L (136-145) Potassium Level 3.6 mmol/L (3.5-5.1) 3.8 mmol/L (3.5-5.1) Chloride Level 97 mmol/L (98-107) 106 mmol/L (98-107) Carbon Dioxide Level 28 mmol/L (21-32) 25 mmol/L (21-32) Anion Gap 7 (6-14) 9 (6-14) Blood Urea Nitrogen 13 mg/dL (7-20) 12 mg/dL (7-20) Creatinine 1.1 mg/dL (0.6-1.0) 0.9 mg/dL (0.6-1.0) Estimated GFR (Cockcroft-Gault) 52.2 65.8 BUN/Creatinine Ratio 12 (6-20) Glucose Level 127 mg/dL (70-99) 135 mg/dL (70-99) Calcium Level 9.8 mg/dL (8.5-10.1) 8.6 mg/dL (8.5-10.1) Total Bilirubin 1.3 mg/dL (0.2-1.0) Aspartate Amino Transf (AST/SGOT) 19 U/L (15-37) Alanine Aminotransferase (ALT/SGPT) 22 U/L (14-59) Alkaline Phosphatase 57 U/L (46-116) Total Protein 8.5 g/dL (6.4-8.2) Albumin 4.0 g/dL (3.4-5.0) Albumin/Globulin Ratio 0.9 (1.0-1.7) Lipase 356 U/L (73-393) Problem List Problems Medical Problems: (1) Appendicitis Status: Acute (2) Kidney mass Status: Acute Assessment/Plan s/p perf appy await urology consult continue IV abx one more day NIDHI RHODES NANOTECHNOLOGIST May 12, 2019 09:04
--- NOTE | 2019-05-12 09:27 | NUR ---
Assumed care from Chris, spoke with pt/spouse regarding continued antibiotic therapy & Nephrology consult
[2019-05-12] MEDS: DOCUSATE SODIUM 100 MG CAPSULE. PO SCH ×2 (09:42→21:02)
--- NOTE | 2019-05-12 09:55 | NUR ---
Refused am Lisinopril stated she already took it, informed to not take home medication unless instructed by nursing or MD, agreeable, spouse at bedside
[2019-05-12 11:00] VITALS: BP 127/67
--- NOTE | 2019-05-12 12:35 | NUR ---
To radiology per w/c accompanied by spouse
[2019-05-12] MEDS: IV NORMAL SALINE 1000ML BAG 1,000 ML IV SCH (13:38)
[2019-05-12 15:00] VITALS: BP 123/74
--- NOTE | 2019-05-12 15:53 | PDOC ---
PROGRESS NOTES Chief Complaint Chief Complaint Acute appendicitis sepsis, peritonitis Incidental right renal necrotic mass - probable RCC, measuring 10 cm greatest diameter Mild hyponatremia 132 History of Present Illness History of Present Illness feels well, pain ok up to chair eating, has met with Uro, will likely plan to f/u here. will be seen outpatient, needs to heal from this first Vitals Vitals Vital Signs Date Time Temp Pulse Resp B/P (MAP) Pulse Ox O2 Delivery O2 Flow Rate FiO2 05/12/19 11:00 99.6 98 18 127/67 (87) 99 Room Air 99.6 05/12/19 07:00 95.0 Physical Exam General: Alert, Oriented X3, Cooperative, No acute distress Heart: Regular rate Lungs: Clear Abdomen: Soft, Other (dressings dry) Extremities: No clubbing, No cyanosis Skin: No rashes, No breakdown Labs LABS Laboratory Tests Test 05/12/19 03:35 White Blood Count 10.0 x10^3/uL (4.0-11.0) Red Blood Count 3.36 x10^6/uL (3.50-5.40) Hemoglobin 11.0 g/dL (12.0-15.5) Hematocrit 30.8 % (36.0-47.0) Mean Corpuscular Volume 92 fL (79-100) Mean Corpuscular Hemoglobin 33 pg (25-35) Mean Corpuscular Hemoglobin Concent 36 g/dL (31-37) Red Cell Distribution Width 13.4 % (11.5-14.5) Platelet Count 154 x10^3/uL (140-400) Neutrophils (%) (Auto) 89 % (31-73) Lymphocytes (%) (Auto) 6 % (24-48) Monocytes (%) (Auto) 6 % (0-9) Eosinophils (%) (Auto) 0 % (0-3) Basophils (%) (Auto) 0 % (0-3) Neutrophils # (Auto) 8.8 x10^3uL (1.8-7.7) Lymphocytes # (Auto) 0.6 x10^3/uL (1.0-4.8) Monocytes # (Auto) 0.6 x10^3/uL (0.0-1.1) Eosinophils # (Auto) 0.0 x10^3/uL (0.0-0.7) Basophils # (Auto) 0.0 x10^3/uL (0.0-0.2) Sodium Level 140 mmol/L (136-145) Potassium Level 3.8 mmol/L (3.5-5.1) Chloride Level 106 mmol/L (98-107) Carbon Dioxide Level 25 mmol/L (21-32) Anion Gap 9 (6-14) Blood Urea Nitrogen 12 mg/dL (7-20) Creatinine 0.9 mg/dL (0.6-1.0) Estimated GFR (Cockcroft-Gault) 65.8 Glucose Level 135 mg/dL (70-99) Calcium Level 8.6 mg/dL (8.5-10.1) Assessment and Plan Assessmemt and Plan Problems Medical Problems: (1) Appendicitis Status: Acute (2) Kidney mass Status: Acute Comment Review of Relevant I have reviewed the following items shravan (where applicable) has been applied. Labs Laboratory Tests Test 05/11/19 11:12 05/11/19 11:27 05/12/19 03:35 Urine Collection Type Unknown Urine Color Yellow Urine Clarity Clear Urine pH 7.0 Urine Specific [place] 1.015 Urine Protein Negative mg/dL (NEG-TRACE) Urine Glucose (UA) Negative mg/dL (NEG) Urine Ketones (Stick) Negative mg/dL (NEG) Urine Blood Trace (NEG) Urine Nitrite Negative (NEG) Urine Bilirubin Negative (NEG) Urine Urobilinogen Dipstick 0.2 mg/dL (0.2 mg/dL) Urine Leukocyte Esterase Trace (NEG) Urine RBC 3-5 /HPF (0-2) Urine WBC 5-10 /HPF (0-4) Urine Squamous Epithelial Cells Mod /LPF Urine Bacteria Few /HPF (0-FEW) White Blood Count 13.4 x10^3/uL (4.0-11.0) 10.0 x10^3/uL (4.0-11.0) Red Blood Count 4.19 x10^6/uL (3.50-5.40) 3.36 x10^6/uL (3.50-5.40) Hemoglobin 13.0 g/dL (12.0-15.5) 11.0 g/dL (12.0-15.5) Hematocrit 38.4 % (36.0-47.0) 30.8 % (36.0-47.0) Mean Corpuscular Volume 92 fL (79-100) 92 fL (79-100) Mean Corpuscular Hemoglobin 31 pg (25-35) 33 pg (25-35) Mean Corpuscular Hemoglobin Concent 34 g/dL (31-37) 36 g/dL (31-37) Red Cell Distribution Width 13.1 % (11.5-14.5) 13.4 % (11.5-14.5) Platelet Count 193 x10^3/uL (140-400) 154 x10^3/uL (140-400) Neutrophils (%) (Auto) 89 % (31-73) 89 % (31-73) Lymphocytes (%) (Auto) 7 % (24-48) 6 % (24-48) Monocytes (%) (Auto) 4 % (0-9) 6 % (0-9) Eosinophils (%) (Auto) 0 % (0-3) 0 % (0-3) Basophils (%) (Auto) 1 % (0-3) 0 % (0-3) Neutrophils # (Auto) 11.8 x10^3uL (1.8-7.7) 8.8 x10^3uL (1.8-7.7) Lymphocytes # (Auto) 0.9 x10^3/uL (1.0-4.8) 0.6 x10^3/uL (1.0-4.8) Monocytes # (Auto) 0.6 x10^3/uL (0.0-1.1) 0.6 x10^3/uL (0.0-1.1) Eosinophils # (Auto) 0.0 x10^3/uL (0.0-0.7) 0.0 x10^3/uL (0.0-0.7) Basophils # (Auto) 0.1 x10^3/uL (0.0-0.2) 0.0 x10^3/uL (0.0-0.2) Segmented Neutrophils % 79 % (35-66) Band Neutrophils % 9 % (0-9) Lymphocytes % 7 % (24-48) Monocytes % 4 % (0-10) Basophils % 1 % (0-3) Platelet Estimate Adequate (ADEQUATE) Large Platelets Few Sodium Level 132 mmol/L (136-145) 140 mmol/L (136-145) Potassium Level 3.6 mmol/L (3.5-5.1) 3.8 mmol/L (3.5-5.1) Chloride Level 97 mmol/L (98-107) 106 mmol/L (98-107) Carbon Dioxide Level 28 mmol/L (21-32) 25 mmol/L (21-32) Anion Gap 7 (6-14) 9 (6-14) Blood Urea Nitrogen 13 mg/dL (7-20) 12 mg/dL (7-20) Creatinine 1.1 mg/dL (0.6-1.0) 0.9 mg/dL (0.6-1.0) Estimated GFR (Cockcroft-Gault) 52.2 65.8 BUN/Creatinine Ratio 12 (6-20) Glucose Level 127 mg/dL (70-99) 135 mg/dL (70-99) Calcium Level 9.8 mg/dL (8.5-10.1) 8.6 mg/dL (8.5-10.1) Total Bilirubin 1.3 mg/dL (0.2-1.0) Aspartate Amino Transf (AST/SGOT) 19 U/L (15-37) Alanine Aminotransferase (ALT/SGPT) 22 U/L (14-59) Alkaline Phosphatase 57 U/L (46-116) Total Protein 8.5 g/dL (6.4-8.2) Albumin 4.0 g/dL (3.4-5.0) Albumin/Globulin Ratio 0.9 (1.0-1.7) Lipase 356 U/L (73-393) Laboratory Tests Test 05/12/19 03:35 White Blood Count 10.0 x10^3/uL (4.0-11.0) Red Blood Count 3.36 x10^6/uL (3.50-5.40) Hemoglobin 11.0 g/dL (12.0-15.5) Hematocrit 30.8 % (36.0-47.0) Mean Corpuscular Volume 92 fL (79-100) Mean Corpuscular Hemoglobin 33 pg (25-35) Mean Corpuscular Hemoglobin Concent 36 g/dL (31-37) Red Cell Distribution Width 13.4 % (11.5-14.5) Platelet Count 154 x10^3/uL (140-400) Neutrophils (%) (Auto) 89 % (31-73) Lymphocytes (%) (Auto) 6 % (24-48) Monocytes (%) (Auto) 6 % (0-9) Eosinophils (%) (Auto) 0 % (0-3) Basophils (%) (Auto) 0 % (0-3) Neutrophils # (Auto) 8.8 x10^3uL (1.8-7.7) Lymphocytes # (Auto) 0.6 x10^3/uL (1.0-4.8) Monocytes # (Auto) 0.6 x10^3/uL (0.0-1.1) Eosinophils # (Auto) 0.0 x10^3/uL (0.0-0.7) Basophils # (Auto) 0.0 x10^3/uL (0.0-0.2) Sodium Level 140 mmol/L (136-145) Potassium Level 3.8 mmol/L (3.5-5.1) Chloride Level 106 mmol/L (98-107) Carbon Dioxide Level 25 mmol/L (21-32) Anion Gap 9 (6-14) Blood Urea Nitrogen 12 mg/dL (7-20) Creatinine 0.9 mg/dL (0.6-1.0) Estimated GFR (Cockcroft-Gault) 65.8 Glucose Level 135 mg/dL (70-99) Calcium Level 8.6 mg/dL (8.5-10.1) Medications Current Medications Sodium Chloride 1,000 ml @ 1,000 mls/hr Q1H IV Last administered on 05/11/19at 11:53; Start 05/11/19 at 11:13; Stop 05/11/19 at 12:12; Status DC Fentanyl Citrate (Fentanyl 2ml Vial) 50 mcg 1X ONCE IV Last administered on 05/11/19 11:52; Start 05/11/19 at 11:15; Stop 05/11/19 at 11:32; Status DC Ondansetron HCl (Zofran) 4 mg 1X ONCE IV Last administered on 05/11/19at 11:52; Start 05/11/19 at 11:15; Stop 05/11/19 at 11:32; Status DC Iohexol (Omnipaque 300 Mg/ml) 60 ml 1X ONCE IV Last administered on 05/11/19at 12:09; Start 05/11/19 at 12:00; Stop 05/11/19 at 12:01; Status DC Info (CONTRAST GIVEN -- Rx MONITORING) 1 each PRN DAILY PRN MC SEE COMMENTS; Start 05/11/19 at 12:00; Stop 05/13/19 at 11:59 Piperacillin Sod/ Tazobactam Sod 3.375 gm/Sodium Chloride 50 ml @ 100 mls/hr 1X ONCE IV ; Start 05/11/19 at 12:45; Stop 05/11/19 at 13:14; Status UNV Cefepime HCl (Maxipime) 1 gm 1X ONCE IVP Last administered on 05/11/19at 13:14; Start 05/11/19 at 12:45; Stop 05/11/19 at 12:48; Status DC Fentanyl Citrate (Fentanyl 2ml Vial) 50 mcg 1X ONCE IV Last administered on 05/11/19at 13:14; Start 05/11/19 at 13:15; Stop 05/11/19 at 13:16; Status DC Sodium Chloride 1,000 ml @ 100 mls/hr Q10H IV ; Start 05/11/19 at 13:15; Stop 05/12/19 at 09:59; Status DC Fentanyl Citrate (Fentanyl 2ml Vial) 50 mcg PRN Q2HR PRN IV SEVERE PAIN; Start 05/11/19 at 13:15 Ondansetron HCl (Zofran) 4 mg PRN Q6HRS PRN IV NAUSEA/VOMITING; Start 05/11/19 at 13:15 Acetaminophen (Tylenol) 500 mg PRN Q6HRS PRN PO MILD PAIN / TEMP; Start 05/11/19 at 13:15 Acetaminophen/ Codeine Phosphate (Tylenol #3) 1 tab PRN Q6HRS PRN PO MODERATE PAIN; Start 05/11/19 at 13:15 Ondansetron HCl (Zofran) 4 mg PRN Q6HRS PRN IV NAUSEA/VOMITING; Start 05/11/19 at 13:30; Stop 05/11/19 at 20:00; Status DC Fentanyl Citrate (Fentanyl 2ml Vial) 25 mcg PRN Q5MIN PRN IV MILD PAIN 1-3; Start 05/11/19 at 13:30; Stop 05/11/19 at 20:00; Status DC Fentanyl Citrate (Fentanyl 2ml Vial) 50 mcg PRN Q5MIN PRN IV MODERATE TO SEVERE PAIN Last administered on 05/11/19at 15:25; Start 05/11/19 at 13:30; Stop 05/11/19 at 20:00; Status DC Morphine Sulfate (Morphine Sulfate) 1 mg PRN Q10MIN PRN IV SEVERE PAIN 7-10; Start 05/11/19 at 13:30; Stop 05/11/19 at 20:00; Status DC Ringer's Solution 1,000 ml @ 30 mls/hr Q24H IV Last administered on 05/11/19at 15:25; Start 05/11/19 at 13:17; Stop 05/12/19 at 01:16; Status DC Lidocaine HCl (Xylocaine-Mpf 1% 2ml Vial) 2 ml PRN 1X PRN ID PRIOR TO IV START; Start 05/11/19 at 13:30; Stop 05/11/19 at 20:00; Status DC Hydromorphone HCl (Dilaudid) 0.5 mg PRN Q10MIN PRN IV SEV PAIN, Second choice; Start 05/11/19 at 13:30; Stop 05/11/19 at 20:00; Status DC Prochlorperazine Edisylate (Compazine) 5 mg PACU PRN PRN IV NAUSEA, MRX1 Last administered on 05/11/19at 15:24; Start 05/11/19 at 13:30; Stop 05/11/19 at 20:00; Status DC Cefazolin Sodium/ Dextrose 50 ml @ 100 mls/hr 1X PREOP ONCE IV Last administered on 05/11/19at 13:59; Start 05/11/19 at 13:15; Stop 05/11/19 at 13:44; Status DC Metronidazole 100 ml @ 100 mls/hr 1X PREOP IV Last administered on 05/11/19at 13:37; Start 05/11/19 at 13:15; Stop 05/12/19 at 11:16; Status DC Ondansetron HCl (Zofran) 4 mg PRN Q8HRS PRN IV NAUSEA/VOMITING; Start 05/11/19 at 13:30; Stop 05/12/19 at 13:29; Status DC Fentanyl Citrate (Fentanyl 2ml Vial) 50 mcg PRN Q1HR PRN IV SEVERE PAIN; Start 05/11/19 at 13:30; Stop 05/12/19 at 13:29; Status DC Sodium Chloride 1,000 ml @ 100 mls/hr Q10H IV ; Start 05/11/19 at 13:17; Stop 05/12/19 at 09:59; Status DC Bupivacaine HCl/ Epinephrine Bitart (Sensorcain-Mpf Epi 0.5%-[id number]) 30 ml STK-MED ONCE .ROUTE Last administered on 05/11/19at 14:30; Start 05/11/19 at 12:42; Stop 05/11/19 at 13:42; Status DC Fentanyl Citrate (Fentanyl 2ml Vial) 100 mcg STK-MED ONCE .ROUTE ; Start 05/11/19 at 13:58; Stop 05/11/19 at 13:59; Status DC Rocuronium Avalon (Zemuron) 50 mg STK-MED ONCE .ROUTE ; Start 05/11/19 at 13:58; Stop 05/11/19 at 13:59; Status DC Cellulose (Surgicel Hemostat 2x3) 1 each STK-MED ONCE .ROUTE Last administered on 05/11/19at 14:30; Start 05/11/19 at 13:52; Stop 05/11/19 at 14:52; Status DC Neostigmine Methylsulfate (Bloxiverz) 10 mg STK-MED ONCE .ROUTE ; Start 05/11/19 at 15:07; Stop 05/11/19 at 15:08; Status DC Glycopyrrolate (Robinul) 1 mg STK-MED ONCE .ROUTE ; Start 05/11/19 at 15:08; Stop 05/11/19 at 15:09; Status DC Sevoflurane (Ultane) 60 ml STK-MED ONCE IH ; Start 05/11/19 at 15:08; Stop 05/11/19 at 15:09; Status DC Ondansetron HCl (Zofran) 4 mg STK-MED ONCE .ROUTE ; Start 05/11/19 at 15:10; Stop 05/11/19 at 15:11; Status DC Propofol 20 ml @ As Directed STK-MED ONCE IV ; Start 05/11/19 at 15:10; Stop 05/11/19 at 15:11; Status DC Lidocaine HCl (Lidocaine Pf 2% Vial) 5 ml STK-MED ONCE .ROUTE ; Start 05/11/19 at 15:10; Stop 05/11/19 at 15:11; Status DC Dexamethasone Sodium Phosphate (Decadron) 4 mg STK-MED ONCE .ROUTE ; Start 05/11/19 at 15:10; Stop 05/11/19 at 15:11; Status DC Cefazolin Sodium 1 gm/Dextrose 50 ml @ 100 mls/hr Q8H IV ; Start 05/11/19 at 15:30; Stop 05/11/19 at 16:13; Status DC Metronidazole 100 ml @ 100 mls/hr Q12HR IV Last administered on 05/12/19at 09:44; Start 05/11/19 at 21:00 Enoxaparin Sodium (Lovenox 40mg Syringe) 40 mg QHS SQ ; Start 05/11/19 at 21:00 Sodium Chloride (Normal Saline Flush) 3 ml QSHIFT PRN IV AFTER MEDS AND BLOOD DRAWS; Start 05/11/19 at 15:15 Ringer's Solution 1,000 ml @ 100 mls/hr Q10H IV Last administered on 05/12/19at 13:37; Start 05/11/19 at 15:09 Acetaminophen/ Hydrocodone Bitart (Lortab 5/325) 1 tab PRN Q4HRS PRN PO MILD PAIN 1-3; Start 05/11/19 at 15:15 Ketorolac Tromethamine (Toradol 15mg Vial) 15 mg PRN Q6HRS PRN IV PAIN MILD; Start 05/11/19 at 15:15; Stop 05/16/19 at 15:14 Naloxone HCl (Narcan) 0.4 mg PRN Q2MIN PRN IV SEE INSTRUCTIONS; Start 05/11/19 at 15:15 Sodium Chloride 1,000 ml @ 25 mls/hr Q24H IV ; Start 05/11/19 at 15:09 Morphine Sulfate (Morphine Sulfate) 1 mg PRN Q1HR PRN IV PAIN; Start 05/11/19 at 15:15 Docusate Sodium (Colace) 100 mg BID PO Last administered on 05/12/19at 09:42; St art 05/11/19 at 21:00 Ondansetron HCl (Zofran) 4 mg PRN Q6HRS PRN IV NAUESA, 1ST CHOICE; Start 05/11/19 at 15:15 Ketorolac Tromethamine (Toradol 30mg Vial) 30 mg STK-MED ONCE .ROUTE ; Start 05/11/19 at 15:20; Stop 05/11/19 at 15:21; Status DC Ketorolac Tromethamine (Toradol For Or Only) 30 mg STK-MED ONCE INJ ; Start 05/11/19 at 15:20; Stop 05/11/19 at 15:21; Status DC Cefazolin Sodium (Ancef) 1 gm Q8HRS IVP Last administered on 05/12/19at 13:38; Start 05/11/19 at 22:00 Lisinopril (Prinivil) 10 mg DAILY PO ; Start 05/12/19 at 09:00 Active Scripts Active Reported Lisinopril 10 Mg Tablet 1 Tab PO DAILY Vitals/I & O Vital Sign - Last 24 Hours 05/11/19 05/11/19 05/11/19 05/11/19 16:02 16:26 16:36 19:30 Temp 97.7 98.4 97.7 98.4 Pulse 85 84 Resp 20 18 B/P (MAP) 110/64 109/64 (79) Pulse Ox 99 99 97 O2 Delivery Room Air Room Air Room Air Room Air 05/11/19 05/11/19 05/12/19 05/12/19 20:00 23:30 03:24 07:00 Temp 99.7 98.6 98.1 99.7 98.6 98.1 Pulse 94 92 90 Resp 18 18 20 B/P (MAP) 107/63 (78) 110/64 (79) 119/66 (83) Pulse Ox 98 98 O2 Delivery Room Air Room Air Room Air Room Air O2 Flow Rate 95.0 05/12/19 05/12/19 07:50 11:00 Temp 99.6 99.6 Pulse 98 Resp 18 B/P (MAP) 127/67 (87) Pulse Ox 99 O2 Delivery Room Air Room Air Intake and Output 05/11/19 05/11/19 05/12/19 14:59 22:59 06:59 Intake Total 1000 ml 2400 ml 1580 ml Output Total 150 ml Balance 1000 ml 2250 ml 1580 ml GENTRY BLISS MD May 12, 2019 15:53
--- NOTE | 2019-05-12 16:58 | RAD ---
PA and lateral chest. HISTORY: Staging of renal mass right kidney PA and lateral views were taken of the chest. There is a small pneumoperitoneum. I presume this is postop from the surgery for appendicitis. There is mild bowel distention also likely mild postop ileus. Patient's taken a poor inspiration. Heart is normal in size. A pulmonary nodule is not identified. There is mild atelectasis in the lung bases. There is a trace of pleural effusion. IMPRESSION: 1. Pneumoperitoneum probably postoperative. 2. Mild atelectasis in the lung bases with small pleural effusions probably postop. 3. Bowel distention suggesting an ileus. 4. No pulmonary nodule noted. Electronically signed by: Shant Ledesma MD (05/12/2019 4:55 PM) [facility]
--- NOTE | 2019-05-12 18:11 | NUR ---
instructed on incentive spirometry pulls in about max of 750 ml, encouraged to use every commercial while watching television
[2019-05-12 19:00] VITALS: BP 130/73
[2019-05-12] MEDS: ENOXAPARIN 40 MG/0.4 ML SYRINGE. SQ SCH (21:03)
[2019-05-12 23:00] VITALS: BP 109/58
[2019-05-13 03:00] VITALS: BP 127/71
[2019-05-13] MEDS: ceFAZolin SODIUM IV Push 1 GM VIAL. IVP SCH (06:51)
[2019-05-13 07:00] VITALS: BP 146/87
[2019-05-13] MEDS: IV RINGERS,LACTATED 1000ML 1,000 ML IV SCH (07:09)
[2019-05-13] MEDS: DOCUSATE SODIUM 100 MG CAPSULE. PO SCH (08:06)
[2019-05-13 08:07] VITALS: BP 127/71
[2019-05-13] MEDS: LISINOPRIL 10 MG TABLET PO SCH (08:07)
--- NOTE | 2019-05-13 08:57 | PDOC ---
NIDHI RHODES [employer] 05/13/19 0857: SURGICAL PROGRESS NOTE Subjective tolerating diet, no emesis--poor appetite not much energy today some loose stool Vital Signs Vital Signs Date Time Temp Pulse Resp B/P (MAP) Pulse Ox O2 Delivery O2 Flow Rate FiO2 05/13/19 08:07 91 127/71 05/13/19 07:00 97.8 16 98 Room Air 97.8 05/12/19 07:00 95.0 I&O Intake and Output0 05/13/19 06:59 Intake Total 3850 ml Balance 3850 ml Intake Oral 1500 ml IV Total 2350 ml # Voids 3 # Bowel Movements 1 General: Alert, Oriented X3, Cooperative, No acute distress Abdomen: Soft, Other (lap sites c/d/i, no erythema ) Labs Laboratory Tests Test 05/11/19 11:12 05/11/19 11:27 05/12/19 03:35 Urine Collection Type Unknown Urine Color Yellow Urine Clarity Clear Urine pH 7.0 Urine Specific [place] 1.015 Urine Protein Negative mg/dL (NEG-TRACE) Urine Glucose (UA) Negative mg/dL (NEG) Urine Ketones (Stick) Negative mg/dL (NEG) Urine Blood Trace (NEG) Urine Nitrite Negative (NEG) Urine Bilirubin Negative (NEG) Urine Urobilinogen Dipstick 0.2 mg/dL (0.2 mg/dL) Urine Leukocyte Esterase Trace (NEG) Urine RBC 3-5 /HPF (0-2) Urine WBC 5-10 /HPF (0-4) Urine Squamous Epithelial Cells Mod /LPF Urine Bacteria Few /HPF (0-FEW) White Blood Count 13.4 x10^3/uL (4.0-11.0) 10.0 x10^3/uL (4.0-11.0) Red Blood Count 4.19 x10^6/uL (3.50-5.40) 3.36 x10^6/uL (3.50-5.40) Hemoglobin 13.0 g/dL (12.0-15.5) 11.0 g/dL (12.0-15.5) Hematocrit 38.4 % (36.0-47.0) 30.8 % (36.0-47.0) Mean Corpuscular Volume 92 fL (79-100) 92 fL (79-100) Mean Corpuscular Hemoglobin 31 pg (25-35) 33 pg (25-35) Mean Corpuscular Hemoglobin Concent 34 g/dL (31-37) 36 g/dL (31-37) Red Cell Distribution Width 13.1 % (11.5-14.5) 13.4 % (11.5-14.5) Platelet Count 193 x10^3/uL (140-400) 154 x10^3/uL (140-400) Neutrophils (%) (Auto) 89 % (31-73) 89 % (31-73) Lymphocytes (%) (Auto) 7 % (24-48) 6 % (24-48) Monocytes (%) (Auto) 4 % (0-9) 6 % (0-9) Eosinophils (%) (Auto) 0 % (0-3) 0 % (0-3) Basophils (%) (Auto) 1 % (0-3) 0 % (0-3) Neutrophils # (Auto) 11.8 x10^3uL (1.8-7.7) 8.8 x10^3uL (1.8-7.7) Lymphocytes # (Auto) 0.9 x10^3/uL (1.0-4.8) 0.6 x10^3/uL (1.0-4.8) Monocytes # (Auto) 0.6 x10^3/uL (0.0-1.1) 0.6 x10^3/uL (0.0-1.1) Eosinophils # (Auto) 0.0 x10^3/uL (0.0-0.7) 0.0 x10^3/uL (0.0-0.7) Basophils # (Auto) 0.1 x10^3/uL (0.0-0.2) 0.0 x10^3/uL (0.0-0.2) Segmented Neutrophils % 79 % (35-66) Band Neutrophils % 9 % (0-9) Lymphocytes % 7 % (24-48) Monocytes % 4 % (0-10) Basophils % 1 % (0-3) Platelet Estimate Adequate (ADEQUATE) Large Platelets Few Sodium Level 132 mmol/L (136-145) 140 mmol/L (136-145) Potassium Level 3.6 mmol/L (3.5-5.1) 3.8 mmol/L (3.5-5.1) Chloride Level 97 mmol/L (98-107) 106 mmol/L (98-107) Carbon Dioxide Level 28 mmol/L (21-32) 25 mmol/L (21-32) Anion Gap 7 (6-14) 9 (6-14) Blood Urea Nitrogen 13 mg/dL (7-20) 12 mg/dL (7-20) Creatinine 1.1 mg/dL (0.6-1.0) 0.9 mg/dL (0.6-1.0) Estimated GFR (Cockcroft-Gault) 52.2 65.8 BUN/Creatinine Ratio 12 (6-20) Glucose Level 127 mg/dL (70-99) 135 mg/dL (70-99) Calcium Level 9.8 mg/dL (8.5-10.1) 8.6 mg/dL (8.5-10.1) Total Bilirubin 1.3 mg/dL (0.2-1.0) Aspartate Amino Transf (AST/SGOT) 19 U/L (15-37) Alanine Aminotransferase (ALT/SGPT) 22 U/L (14-59) Alkaline Phosphatase 57 U/L (46-116) Total Protein 8.5 g/dL (6.4-8.2) Albumin 4.0 g/dL (3.4-5.0) Albumin/Globulin Ratio 0.9 (1.0-1.7) Lipase 356 U/L (73-393) Problem List Problems Medical Problems: (1) Appendicitis Status: Acute (2) Kidney mass Status: Acute Assessment/Plan s/p appy scripts on chart for flagyl and kespenser norco FU 1-2 weeks outpt plans with urology CASSIE LARA MD 05/13/19 1005: SURGICAL PROGRESS NOTE Assessment/Plan pt seen and examined incisions c/d possible home later today no new surgical needs NIDHI RHODES APRN May 13, 2019 08:57 CASSIE LARA MD May 13, 2019 10:05
--- NOTE | 2019-05-13 10:41 | NUR ---
SS following for discharge planning. SS reviewed pt chart. Pt is from home with spouse and is currently on room air. No discharge needs noted at this time. SS will continue to follow for discharge planning.
--- NOTE | 2019-05-13 10:43 | PDOC ---
PROGRESS NOTE CHIEF COMPLAINT: having a little nausea today; afeb SUBJECTIVE: ROS: ROS: RESPIRATORY: Shortness of breath denies. Cough denies. UROLOGY: Denies blood in urine. Denies difficulty urinating mild nausea; no abd pain HPI: Duration: [] Quality: [] Severity: [] Site/Location: [] Problems: Problems Medical Problems: (1) Appendicitis Status: Acute (2) Kidney mass Status: Acute OBJECTIVE: Vital Signs: Vital Signs Date Time Temp Pulse Resp B/P (MAP) Pulse Ox O2 Delivery O2 Flow Rate FiO2 05/13/19 08:10 Room Air 05/13/19 08:07 91 127/71 05/13/19 07:00 97.8 94 16 146/87 (106) 98 Room Air 97.8 05/13/19 03:00 98.5 91 18 127/71 (89) 93 Room Air 98.5 05/12/19 23:00 99.0 108 18 109/58 (75) 93 Room Air 99.0 05/12/19 19:30 Room Air 05/12/19 19:00 99.7 109 18 130/73 (92) 95 Room Air 99.7 05/12/19 15:00 98.9 105 20 123/74 (90) 99 Room Air 98.9 05/12/19 11:00 99.6 98 18 127/67 (87) 99 Room Air 99.6 I & O Intake and Output 05/13/19 06:59 Intake Total 3850 ml Balance 3850 ml Intake Oral 1500 ml IV Total 2350 ml # Voids 3 # Bowel Movements 1 PHYSICAL EXAM: Physical Exam: General: Pleasant, no acute distress, well groomed Eyes: conjunctiva anicteric, eyes full range of motion ENT: moist oral mucosa, normal dentition Neck: Trachea midline, no masses Respiratory: unlabored breathing, not using accessory muscles, no crackles or wheezes Cardiovascular: Regular rate and rhythm, no peripheral edema Abdomen: nontender, nondistended, lap incisions clean, no mass palpable Skin: no rashes or skin lesions on visualized skin Psych: normal mood, affect. Alert and oriented x 3. ROS: ROS: unrem LABS: Laboratory Tests Test 05/11/19 11:12 05/11/19 11:27 05/12/19 03:35 Urine Collection Type Unknown Urine Color Yellow Urine Clarity Clear Urine pH 7.0 Urine Specific [place] 1.015 Urine Protein Negative mg/dL (NEG-TRACE) Urine Glucose (UA) Negative mg/dL (NEG) Urine Ketones (Stick) Negative mg/dL (NEG) Urine Blood Trace (NEG) Urine Nitrite Negative (NEG) Urine Bilirubin Negative (NEG) Urine Urobilinogen Dipstick 0.2 mg/dL (0.2 mg/dL) Urine Leukocyte Esterase Trace (NEG) Urine RBC 3-5 /HPF (0-2) Urine WBC 5-10 /HPF (0-4) Urine Squamous Epithelial Cells Mod /LPF Urine Bacteria Few /HPF (0-FEW) White Blood Count 13.4 x10^3/uL (4.0-11.0) 10.0 x10^3/uL (4.0-11.0) Red Blood Count 4.19 x10^6/uL (3.50-5.40) 3.36 x10^6/uL (3.50-5.40) Hemoglobin 13.0 g/dL (12.0-15.5) 11.0 g/dL (12.0-15.5) Hematocrit 38.4 % (36.0-47.0) 30.8 % (36.0-47.0) Mean Corpuscular Volume 92 fL (79-100) 92 fL (79-100) Mean Corpuscular Hemoglobin 31 pg (25-35) 33 pg (25-35) Mean Corpuscular Hemoglobin Concent 34 g/dL (31-37) 36 g/dL (31-37) Red Cell Distribution Width 13.1 % (11.5-14.5) 13.4 % (11.5-14.5) Platelet Count 193 x10^3/uL (140-400) 154 x10^3/uL (140-400) Neutrophils (%) (Auto) 89 % (31-73) 89 % (31-73) Lymphocytes (%) (Auto) 7 % (24-48) 6 % (24-48) Monocytes (%) (Auto) 4 % (0-9) 6 % (0-9) Eosinophils (%) (Auto) 0 % (0-3) 0 % (0-3) Basophils (%) (Auto) 1 % (0-3) 0 % (0-3) Neutrophils # (Auto) 11.8 x10^3uL (1.8-7.7) 8.8 x10^3uL (1.8-7.7) Lymphocytes # (Auto) 0.9 x10^3/uL (1.0-4.8) 0.6 x10^3/uL (1.0-4.8) Monocytes # (Auto) 0.6 x10^3/uL (0.0-1.1) 0.6 x10^3/uL (0.0-1.1) Eosinophils # (Auto) 0.0 x10^3/uL (0.0-0.7) 0.0 x10^3/uL (0.0-0.7) Basophils # (Auto) 0.1 x10^3/uL (0.0-0.2) 0.0 x10^3/uL (0.0-0.2) Segmented Neutrophils % 79 % (35-66) Band Neutrophils % 9 % (0-9) Lymphocytes % 7 % (24-48) Monocytes % 4 % (0-10) Basophils % 1 % (0-3) Platelet Estimate Adequate (ADEQUATE) Large Platelets Few Sodium Level 132 mmol/L (136-145) 140 mmol/L (136-145) Potassium Level 3.6 mmol/L (3.5-5.1) 3.8 mmol/L (3.5-5.1) Chloride Level 97 mmol/L (98-107) 106 mmol/L (98-107) Carbon Dioxide Level 28 mmol/L (21-32) 25 mmol/L (21-32) Anion Gap 7 (6-14) 9 (6-14) Blood Urea Nitrogen 13 mg/dL (7-20) 12 mg/dL (7-20) Creatinine 1.1 mg/dL (0.6-1.0) 0.9 mg/dL (0.6-1.0) Estimated GFR (Cockcroft-Gault) 52.2 65.8 BUN/Creatinine Ratio 12 (6-20) Glucose Level 127 mg/dL (70-99) 135 mg/dL (70-99) Calcium Level 9.8 mg/dL (8.5-10.1) 8.6 mg/dL (8.5-10.1) Total Bilirubin 1.3 mg/dL (0.2-1.0) Aspartate Amino Transf (AST/SGOT) 19 U/L (15-37) Alanine Aminotransferase (ALT/SGPT) 22 U/L (14-59) Alkaline Phosphatase 57 U/L (46-116) Total Protein 8.5 g/dL (6.4-8.2) Albumin 4.0 g/dL (3.4-5.0) Albumin/Globulin Ratio 0.9 (1.0-1.7) Lipase 356 U/L (73-393) IMAGES CXR is clear MEDICATIONS: Current Medications Medications (Trade) Dose Ordered Sig/Charli Start Time Stop Time Status Last Admin Dose Admin Acetaminophen (Tylenol) 500 mg PRN Q6HRS PRN 05/11/19 13:15 05/12/19 21:02 500 MG Acetaminophen/ Codeine Phosphate (Tylenol #3) 1 tab PRN Q6HRS PRN 05/11/19 13:15 Acetaminophen/ Hydrocodone Bitart (Lortab 5/325) 1 tab PRN Q4HRS PRN 05/11/19 15:15 Bupivacaine HCl/ Epinephrine Bitart (Sensorcain-Mpf Epi 0.5%-1:975104) 30 ml STK-MED ONCE 05/11/19 12:42 05/11/19 13:42 DC 05/11/19 14:30 8 ML Cefazolin Sodium (Ancef) 1 gm Q8HRS 05/11/19 22:00 05/13/19 06:51 1 GM Cefazolin Sodium 1 gm/Dextrose 50 ml @ 100 mls/hr Q8H 05/11/19 15:30 05/11/19 16:13 DC Cefazolin Sodium/ Dextrose 50 ml @ 100 mls/hr 1X PREOP ONCE 05/11/19 13:15 05/11/19 13:44 DC 05/11/19 13:59 100 MLS/HR Cefepime HCl (Maxipime) 1 gm 1X ONCE 05/11/19 12:45 05/11/19 12:48 DC 05/11/19 13:14 1 GM Cellulose (Surgicel Hemostat 2x3) 1 each STK-MED ONCE 05/11/19 13:52 05/11/19 14:52 DC 05/11/19 14:30 1 EACH Dexamethasone Sodium Phosphate (Decadron) 4 mg STK-MED ONCE 05/11/19 15:10 05/11/19 15:11 DC Docusate Sodium (Colace) 100 mg BID 05/11/19 21:00 05/12/19 21:02 100 MG Enoxaparin Sodium (Lovenox 40mg Syringe) 40 mg QHS 05/11/19 21:00 05/12/19 21:03 40 MG Fentanyl Citrate (Fentanyl 2ml Vial) 100 mcg STK-MED ONCE 05/11/19 13:58 05/11/19 13:59 DC Glycopyrrolate (Robinul) 1 mg STK-MED ONCE 05/11/19 15:08 05/11/19 15:09 DC Hydromorphone HCl (Dilaudid) 0.5 mg PRN Q10MIN PRN 05/11/19 13:30 05/11/19 20:00 DC Info (CONTRAST GIVEN -- Rx MONITORING) 1 each PRN DAILY PRN 05/11/19 12:00 05/13/19 11:59 Iohexol (Omnipaque 300 Mg/ml) 60 ml 1X ONCE 05/11/19 12:00 05/11/19 12:01 DC 05/11/19 12:09 60 ML Ketorolac Tromethamine (Toradol 15mg Vial) 15 mg PRN Q6HRS PRN 05/11/19 15:15 05/16/19 15:14 Ketorolac Tromethamine (Toradol 30mg Vial) 30 mg STK-MED ONCE 05/11/19 15:20 05/11/19 15:21 DC Ketorolac Tromethamine (Toradol For Or Only) 30 mg STK-MED ONCE 05/11/19 15:20 05/11/19 15:21 DC Lidocaine HCl (Lidocaine Pf 2% Vial) 5 ml STK-MED ONCE 05/11/19 15:10 05/11/19 15:11 DC Lidocaine HCl (Xylocaine-Mpf 1% 2ml Vial) 2 ml PRN 1X PRN 05/11/19 13:30 05/11/19 20:00 DC Lisinopril (Prinivil) 10 mg DAILY 05/12/19 09:00 05/13/19 08:07 10 MG Metronidazole 100 ml @ 100 mls/hr Q12HR 05/11/19 21:00 05/13/19 08:07 100 MLS/HR Morphine Sulfate (Morphine Sulfate) 1 mg PRN Q1HR PRN 05/11/19 15:15 Naloxone HCl (Narcan) 0.4 mg PRN Q2MIN PRN 05/11/19 15:15 Neostigmine Methylsulfate (Bloxiverz) 10 mg STK-MED ONCE 05/11/19 15:07 05/11/19 15:08 DC Ondansetron HCl (Zofran) 4 mg PRN Q6HRS PRN 05/11/19 15:15 Piperacillin Sod/ Tazobactam Sod 3.375 gm/Sodium Chloride 50 ml @ 100 mls/hr 1X ONCE 05/11/19 12:45 05/11/19 13:14 UNV Prochlorperazine Edisylate (Compazine) 5 mg PACU PRN PRN 05/11/19 13:30 05/11/19 20:00 DC 05/11/19 15:24 5 MG Propofol 20 ml @ As Directed STK-MED ONCE 05/11/19 15:10 05/11/19 15:11 DC Ringer's Solution 1,000 ml @ 100 mls/hr Q10H 05/11/19 15:09 05/13/19 07:09 100 MLS/HR Rocuronium Pelion (Zemuron) 50 mg STK-MED ONCE 05/11/19 13:58 05/11/19 13:59 DC Sevoflurane (Ultane) 60 ml STK-MED ONCE 05/11/19 15:08 05/11/19 15:09 DC Sodium Chloride 1,000 ml @ 25 mls/hr Q24H 05/11/19 15:09 Sodium Chloride (Normal Saline Flush) 3 ml QSHIFT PRN 05/11/19 15:15 ASSESSMENT & PLAN No add'l staging needed before renal surgery; pt may be dismissed per Gen Surg team. We will contact her to set up a Rt Nephrectomy. ProblemList: Kidney mass Problem List: Problems Medical Problems: (1) Appendicitis Status: Acute (2) Kidney mass Status: Acute MARI DELEON MD May 13, 2019 10:43
[2019-05-13] MEDS ORDERED: CEPH-264 PO (10:55)
[2019-05-13] MEDS ORDERED: METR500T PO (10:55)
[2019-05-13] MEDS ORDERED: DOCU-109 PO (10:55)
[2019-05-13] MEDS ORDERED: HYDR-2761 PO (10:55)
--- NOTE | 2019-05-13 10:57 | PDOC3 ---
Discharge Summary Visit Information Date of Admission: May 11, 2019 Date of Discharge: May 13, 2019 Final Diagnosis Acute appendicitis - perforated sepsis, peritonitis Incidental right renal necrotic mass - probable RCC, measuring 10 cm greatest diameter Mild hyponatremia 132 Problems Medical Problems: (1) Appendicitis Status: Acute (2) Kidney mass Status: Acute Brief Hospital Course Allergies Allergies Coded Allergies Type Severity Reaction Last Updated Verified Penicillins Allergy Intermediate RASH 05/11/19 Yes Vital Signs Vital Signs Date Time Temp Pulse Resp B/P (MAP) Pulse Ox O2 Delivery O2 Flow Rate FiO2 05/13/19 08:10 Room Air 05/13/19 08:07 91 127/71 05/13/19 07:00 97.8 16 98 97.8 05/12/19 07:00 95.0 Lab Results Laboratory Tests Test 05/11/19 11:12 05/11/19 11:27 05/12/19 03:35 Urine Collection Type Unknown Urine Color Yellow Urine Clarity Clear Urine pH 7.0 Urine Specific [place] 1.015 Urine Protein Negative mg/dL (NEG-TRACE) Urine Glucose (UA) Negative mg/dL (NEG) Urine Ketones (Stick) Negative mg/dL (NEG) Urine Blood Trace (NEG) Urine Nitrite Negative (NEG) Urine Bilirubin Negative (NEG) Urine Urobilinogen Dipstick 0.2 mg/dL (0.2 mg/dL) Urine Leukocyte Esterase Trace (NEG) Urine RBC 3-5 /HPF (0-2) Urine WBC 5-10 /HPF (0-4) Urine Squamous Epithelial Cells Mod /LPF Urine Bacteria Few /HPF (0-FEW) White Blood Count 13.4 x10^3/uL (4.0-11.0) 10.0 x10^3/uL (4.0-11.0) Red Blood Count 4.19 x10^6/uL (3.50-5.40) 3.36 x10^6/uL (3.50-5.40) Hemoglobin 13.0 g/dL (12.0-15.5) 11.0 g/dL (12.0-15.5) Hematocrit 38.4 % (36.0-47.0) 30.8 % (36.0-47.0) Mean Corpuscular Volume 92 fL (79-100) 92 fL (79-100) Mean Corpuscular Hemoglobin 31 pg (25-35) 33 pg (25-35) Mean Corpuscular Hemoglobin Concent 34 g/dL (31-37) 36 g/dL (31-37) Red Cell Distribution Width 13.1 % (11.5-14.5) 13.4 % (11.5-14.5) Platelet Count 193 x10^3/uL (140-400) 154 x10^3/uL (140-400) Neutrophils (%) (Auto) 89 % (31-73) 89 % (31-73) Lymphocytes (%) (Auto) 7 % (24-48) 6 % (24-48) Monocytes (%) (Auto) 4 % (0-9) 6 % (0-9) Eosinophils (%) (Auto) 0 % (0-3) 0 % (0-3) Basophils (%) (Auto) 1 % (0-3) 0 % (0-3) Neutrophils # (Auto) 11.8 x10^3uL (1.8-7.7) 8.8 x10^3uL (1.8-7.7) Lymphocytes # (Auto) 0.9 x10^3/uL (1.0-4.8) 0.6 x10^3/uL (1.0-4.8) Monocytes # (Auto) 0.6 x10^3/uL (0.0-1.1) 0.6 x10^3/uL (0.0-1.1) Eosinophils # (Auto) 0.0 x10^3/uL (0.0-0.7) 0.0 x10^3/uL (0.0-0.7) Basophils # (Auto) 0.1 x10^3/uL (0.0-0.2) 0.0 x10^3/uL (0.0-0.2) Segmented Neutrophils % 79 % (35-66) Band Neutrophils % 9 % (0-9) Lymphocytes % 7 % (24-48) Monocytes % 4 % (0-10) Basophils % 1 % (0-3) Platelet Estimate Adequate (ADEQUATE) Large Platelets Few Sodium Level 132 mmol/L (136-145) 140 mmol/L (136-145) Potassium Level 3.6 mmol/L (3.5-5.1) 3.8 mmol/L (3.5-5.1) Chloride Level 97 mmol/L (98-107) 106 mmol/L (98-107) Carbon Dioxide Level 28 mmol/L (21-32) 25 mmol/L (21-32) Anion Gap 7 (6-14) 9 (6-14) Blood Urea Nitrogen 13 mg/dL (7-20) 12 mg/dL (7-20) Creatinine 1.1 mg/dL (0.6-1.0) 0.9 mg/dL (0.6-1.0) Estimated GFR (Cockcroft-Gault) 52.2 65.8 BUN/Creatinine Ratio 12 (6-20) Glucose Level 127 mg/dL (70-99) 135 mg/dL (70-99) Calcium Level 9.8 mg/dL (8.5-10.1) 8.6 mg/dL (8.5-10.1) Total Bilirubin 1.3 mg/dL (0.2-1.0) Aspartate Amino Transf (AST/SGOT) 19 U/L (15-37) Alanine Aminotransferase (ALT/SGPT) 22 U/L (14-59) Alkaline Phosphatase 57 U/L (46-116) Total Protein 8.5 g/dL (6.4-8.2) Albumin 4.0 g/dL (3.4-5.0) Albumin/Globulin Ratio 0.9 (1.0-1.7) Lipase 356 U/L (73-393) Brief Hospital Course Ms. Roman is a 53 old female , admit with acute abd pain, acute appy, taken to OR , infected abd. IV abx x 4 8 hours, she looked much better, eating, stooling and ambulating, cont broad abx coverage Uro eval for renal mass, needs to treat this infection before another surg, plan 1-2 weeks in clinic to sched. surg. Discharge Information Condition at Discharge: Improved Follow Up: Weeks Disposition/Orders: D/C to Home Scheduled Lisinopril (Lisinopril) 10 Mg Tablet, 1 TAB PO DAILY for htn, #30 Ref 5 (Reported) Entered as Reported by: RENETTA RODRIGUEZ on 05/11/191628 Last Action: Continued on 05/11/191629 by RENETTA RODRIGUEZ Scheduled PRN Docusate Sodium (Colace) 100 Mg Capsule, 100 MG PO BID PRN for CONSTIPATION, #60 Prescribed by: GENTRY BLISS on 05/13/19 8938 Patient Instructions Patient Instructions < 30 min face to face to see. Dr. Waldron 1 week GENTRY BLISS MD May 13, 2019 10:57
--- NOTE | 2019-05-13 11:55 | NUR ---
Patient left the building in a wheelchair with her around 1145. Discharge education completed by this nurse, therapy, her surgeon, dielectric press operator, and hospital doctor. No concerns noted upon discharge. Scripts given to patient for norco, keflex, and flagyl. Dressings on lap sites changed and incisions were cleansed well with ChloraPrep. Patient left with all her belongings.
--- NOTE | 2019-05-14 15:08 | PATHOLOGY ---
[facility] Accession Number: [id number] . 01 Material submitted: . appendix - APPENDIX . 01 Clinical history: . Appendicitis . 02 Diagnosis: Appendix, appendectomy: - Acute appendicitis and periappendicitis. (SKM/db; 05/14/2019) LBQ/05/14/2019 . 02 Electronically signed: . Aurelio Alexander MD, Pathologist NPI- [id number] . 01 Gross description: . The specimen is received in formalin, labeled "Izabel Roman, appendix". Received is a vermiform appendix measuring 6.8 cm in length by up to two 1.2 cm in diameter with a minimal amount of attached mesoappendix. The serosal surface is pale laguerre to dusky ott-laguerre in appearance. The proximal margin is inked. Sectioning reveals a dilated lumen impacted with fecal material. The specimen is submitted representatively A1 and A2, with the proximal margin and bisected tip submitted in cassette A1. (CAA; 05/13/2019) QAC/QAC . 02 Pathologist provided ICD-10: K35.80 . 02 CPT . 944285 Specimen Comment: A courtesy copy of this report has been sent to Specimen Comment: [phone], , , . Specimen Comment: Report sent to ,DR MONSALVE,DR PANDA / DR GALEANO Performed at: 01 [facility] [address], [place], [place] [id number] MD Simone So MD Phone: [phone] Performed at: 02 [facility] [address] [place], [place] [id number] MD Melchor Dick MD Phone: [phone]
== END 2019-05-13 11:45 | disposition home or self-care (01) | DRG 853 ==
LOC: ER 10:55 → 4 NORTH 13:15 → ER 13:39
PROVIDERS: ADMIT Internal Medicine; ATTEND Internal Medicine
PROC: 0DTJ4ZZ Resection of Appendix, Percutaneous Endoscopic Approach (ICD-10-PCS; principal; 2019-05-11 13:22)
DX: A41.9 Sepsis, unspecified organism (principal); N17.0 Acute kidney failure with tubular necrosis; K35.32 Acute appendicitis with perforation, localized peritonitis, and gangrene, without abscess; E87.1 Hypo-osmolality and hyponatremia; K38.1 Appendicular concretions; I10 Essential (primary) hypertension; N28.89 Other specified disorders of kidney and ureter; Z80.51 Family history of malignant neoplasm of kidney; Z88.0 Allergy status to penicillin
CPT/HCPCS: 36415; 71046; 74177; 80048; 80053; 81001; 83690; 85007; 85025; 87086; 88304; 96361; 96374; 96375; 96376; A7015; J0690; J0692; J0696; J0780; J1100; J1650; J1885; J2001; J2405; J2704; J2710; J3010; J3490; J7030; J7120; Q9967; 99285-25